=== PATIENT | male | born 1935 | race Caucasian/White ===

== ENCOUNTER 2020-12-25 10:50 | Emergency (ER) | payer OTHER, MEDICARE ==
--- NOTE | 2020-12-25 11:31 | ED ---
Extremity Problem HPI - General Chief complaint: Extremity Problem,Nontraumatic Stated complaint: R Knee pain/sent by PCP Time Seen by Provider: 12/25/20 11:14 Source: patient Mode of arrival: ambulatory Limitations: no limitations - History of Present Illness Initial comments: 85-year-old male presents to emergency department with a chief complaint of right leg pain. States his been ongoing for approximately 2 weeks now and appears to be exacerbated with ambulation and weightbearing. States most of the pain is located in the right calf and he has developed unilateral leg swelling but denies any injuries. States he went to his primary care physician who advised him to come to the emergency department for an ultrasound to rule out a DVT. He denies any chest pain or shortness of breath. He is not anticoagulated at this time. No history of DVT or PE. - Related Data Allergies Allergy/AdvReac Type Severity Reaction Status Date / Time tramadol [From Ultram] Allergy Rash/Hives Verified 12/25/20 10:57 Review of Systems ROS Statement: Those systems with pertinent positive or pertinent negative responses have been documented in the HPI. ROS Other: All systems not noted in ROS Statement are negative. Past Medical History Past Medical History: GERD/Reflux, Hypertension Additional Past Medical History / Comment(s): Gout, History of Any Multi-Drug Resistant Organisms: None Reported Past Surgical History: Appendectomy, Cholecystectomy, Tonsillectomy Additional Past Surgical History / Comment(s): Neck fusion Past Psychological History: No Psychological Hx Reported Smoking Status: Never smoker Past Alcohol Use History: None Reported Past Drug Use History: None Reported General Exam Limitations: no limitations General appearance: alert, in no apparent distress, obese Head exam: Present: atraumatic, normocephalic, normal inspection Eye exam: Present: normal appearance, PERRL, EOMI Pupils: Present: normal accommodation ENT exam: Present: normal exam, normal oropharynx, mucous membranes moist Neck exam: Present: normal inspection, full ROM. Absent: tenderness Respiratory exam: Present: normal lung sounds bilaterally. Absent: respiratory distress, wheezes, rales, rhonchi, stridor, chest wall tenderness, accessory muscle use Cardiovascular Exam: Present: regular rate, normal rhythm, normal heart sounds. Absent: systolic murmur Extremities exam: Present: normal inspection, full ROM, normal capillary refill, pedal edema (+2 pitting edema bilaterally.), calf tenderness (Right calf tenderness), other (Palpable DP and PT bilaterally.). Absent: tenderness, joint swelling Back exam: Present: normal inspection, full ROM. Absent: tenderness, CVA tenderness (R), CVA tenderness (L) Neurological exam: Present: alert, oriented X3 Psychiatric exam: Present: normal affect, normal mood Skin exam: Present: warm, dry, intact, normal color Course Vital Signs 12/25/20 10:51 Temperature 97.5 F L Pulse Rate 63 Respiratory 20 Rate Blood Pressure 170/64 O2 Sat by Pulse 99 Oximetry Medical Decision Making - Medical Decision Making 85-year-old male presents to emergency department with a chief complaint of right leg pain. Physical examination reveals +2 pitting edema bilaterally, however there is more swelling on the right lower extremity. Ultrasound of the right lower extremity reveals no signs of DVT. However, there is a small fluid collection possibly hematoma. Patient will be discharged with outpatient follow-up. No chest pain or shortness of breath. Return parameters discussed the patient was understanding and agreeable. Case discussed with Dr. Esposito. Disposition Clinical Impression: Right leg swelling Disposition: HOME SELF-CARE Condition: Stable Instructions (If sedation given, give patient instructions): Leg Edema (ED) Additional Instructions: Please return to the Emergency Department if symptoms worsen or any other concerns. Is patient prescribed a controlled substance at d/c from ED?: No Referrals: [facility],Clinic [Primary Care Provider] - 1-2 days Time of Disposition: 12:48
--- NOTE | 2020-12-25 12:43 | US ---
EXAMINATION TYPE: US venous doppler duplex LE RT DATE OF EXAM: 12/25/2020 12:06 PM COMPARISON: NONE CLINICAL HISTORY: right calf pain x 2 weeks. Right anterior knee pain per patient with right calf swe lling x 2 weeks SIDE PERFORMED: Right TECHNIQUE: The lower extremity deep venous system is examined utilizing real time linear array sonog barry with graded compression, doppler sonography and color-flow sonography. VESSELS IMAGED: Common Femoral Vein Deep Femoral Vein Greater Saphenous Vein * Femoral Vein Popliteal Vein Small Saphenous Vein * Proximal Calf Veins (* superficial vessels) Right Leg: Negative for DVT. There is a Complex fluid area seen anterolateral to right knee = 5.8 x 3.3 x 0.8cm. IMPRESSION: 1. Right lower extremity ultrasound negative for deep venous thrombosis. 2. Small irregular fluid collection is present anterior laterally at the location of the patient's lo wer extremity pain. Consider small hematoma.
[2020-12-25 13:21] VITALS: BP 137/70; PULSE 82; RESP 18; TEMP 98.5
== END 2020-12-25 13:37 | disposition home or self-care (01) ==
LOC: EC 10:50
DX: M79.89 Other specified soft tissue disorders (principal); M79.661 Pain in right lower leg; M25.561 Pain in right knee; I10 Essential (primary) hypertension; K21.9 Gastro-esophageal reflux disease without esophagitis
CPT/HCPCS: 99284

== ENCOUNTER 2021-03-20 12:12 | Inpatient (IN) | payer OTHER, MEDICARE ==
--- NOTE | 2021-03-20 13:08 | ED ---
General Adult HPI - General Chief complaint: Recheck/Abnormal Lab/Rx Stated complaint: High Blood Pressure Time Seen by Provider: 03/20/21 12:54 Source: patient Mode of arrival: ambulatory Limitations: no limitations - History of Present Illness Initial comments: Dictation was produced using [employer] dictation software. please excuse any grammatical, word or spelling errors. Chief Complaint: 85-year-old male presents with hypertension History of Present Illness: 85-year-old male presents to the emergency department for hypertension. Patient states he's been checking his blood pressures at home. He presents to the emergency Department with his daughter. Patient allegedly has been having systolic blood pressures 2170 and 200. Last week patient had his blood pressure medications changed. He was taken off his nifedipine due to lower extremity swelling. He was changed to lisinopril. He's been monitoring his blood pressures at home which have been progressively increasing. He has 40 year history of hypertension and has been under several blood pressure medications. Denies any chest pain. No shortness of breath. No numbness or paresthesias to the arms or legs. Patient denies any headache. States that he feels slightly weak. The ROS documented in this emergency department record has been reviewed and confirmed by me. Those systems with pertinent positive or negative responses have been documented in the HPI. All other systems are other negative and/or noncontributory. PHYSICAL EXAM: General Impression: Alert and oriented x3, not in acute distress HEENT: Normocephalic atraumatic, extra-ocular movements intact, pupils equal and reactive to light bilaterally, mucous membranes moist. Cardiovascular: Heart regular rate and rhythm Chest: Able to complete full sentences, no retractions, no tachypnea Abdomen: abdomen soft, non-tender, non-distended, no organomegaly Musculoskeletal: Pulses present and equal in all extremities, no peripheral edema Motor: no focal deficits noted Neurological: CN II-XII grossly intact, no focal motor or sensory deficits noted Skin: Intact with no visualized rashes Psych: Normal affect and mood ED course: 85-year-old well-appearing male presents to the emergency department for hypertension. Vital signs upon arrival shows blood pressure 193/85, heart rate of 50, rest of vital signs within acceptable limits. As I'm evaluating the patient at the bedside his heart rate will decrease into the low 40s. Daughter bedside reports that patient does not have a history of bradycardia. She reports that he's not on any medications to lower his heart rate. EKG shows sinus bradycardia. No heart block. Laboratory evaluation obtained. CBC is unremarkable. Coag panel is negative. Metabolic panel shows 5.5 potassium however with hemolysis. This likely in lab error. Elevated BUN of 24 and creatinine 1.15, troponin is 0.129. Chest x-ray shows no acute processes. Blood pressure still slightly elevated 180/64. His reevaluated at bedside at approximately 2:30 PM found to be stable medical condition. He is well-appearing at the bedside. Is concerned that patient has bradycardia secondary to cardiac ischemia. Patient started on heparin for non- ST segment elevation DE. Patient will be admitted. Case discussed with Dr. Oliveros. Cardiology be consulted. EKG interpretation: Ventricular rate rate, sinus bradycardia, when necessary 172, QRS 120, QTC 405. No MO prolongation, no QTC prolongation, T-wave inversion in inferior leads and V6. No old EKG for comparison. Overall this EKG is nonspecific - Related Data Allergies Allergy/AdvReac Type Severity Reaction Status Date / Time tramadol [From Ultram] Allergy Rash/Hives Verified 03/20/21 12:38 Review of Systems ROS Statement: Those systems with pertinent positive or pertinent negative responses have been documented in the HPI. ROS Other: All systems not noted in ROS Statement are negative. Past Medical History Past Medical History: GERD/Reflux, Hypertension Additional Past Medical History / Comment(s): Gout, History of Any Multi-Drug Resistant Organisms: None Reported Past Surgical History: Appendectomy, Cholecystectomy, Tonsillectomy Additional Past Surgical History / Comment(s): Neck fusion Past Psychological History: No Psychological Hx Reported Smoking Status: Never smoker Past Alcohol Use History: None Reported Past Drug Use History: None Reported General Exam Limitations: no limitations Course Vital Signs 03/20/21 03/20/21 03/20/21 12:35 13:04 13:54 Temperature 97.9 F Pulse Rate 50 L 49 L 42 L Respiratory 16 20 20 Rate Blood Pressure 193/85 196/92 192/88 O2 Sat by Pulse 96 95 95 Oximetry 03/20/21 15:08 Temperature Pulse Rate 43 L Respiratory 20 Rate Blood Pressure 188/64 O2 Sat by Pulse 95 Oximetry Medical Decision Making - Lab Data Result diagrams: 03/20/21 13:08 09/03/21 13:08 Lab Results 03/20/21 03/20/21 03/20/21 Range/Units 13:08 13:08 13:08 WBC 8.4 (3.8-10.6) k/uL RBC 4.41 (4.30-5.90) m/uL Hgb 14.4 (13.0-17.5) gm/dL Hct 41.4 (39.0-53.0) % MCV 93.8 (80.0-100.0) fL MCH 32.5 (25.0-35.0) pg MCHC 34.7 (31.0-37.0) g/dL RDW 13.4 (11.5-15.5) % Plt Count 203 (150-450) k/uL MPV 7.9 Neutrophils % 61 % Lymphocytes % 29 % Monocytes % 6 % Eosinophils % 2 % Basophils % 1 % Neutrophils # 5.1 (1.3-7.7) k/uL Lymphocytes # 2.4 (1.0-4.8) k/uL Monocytes # 0.5 (0-1.0) k/uL Eosinophils # 0.2 (0-0.7) k/uL Basophils # 0.1 (0-0.2) k/uL PT 10.0 (9.0-12.0) sec INR 0.9 (<1.2) APTT 22.5 (22.0-30.0) sec Sodium 140 (137-145) mmol/L Potassium 5.5 H (3.5-5.1) mmol/L Chloride 112 H (98-107) mmol/L Carbon Dioxide 20 L (22-30) mmol/L Anion Gap 8 mmol/L BUN 24 H (9-20) mg/dL Creatinine 1.15 (0.66-1.25) mg/dL Est GFR (CKD-EPI)AfAm 68 (>60 ml/min/1.73 sqM) Est GFR (CKD-EPI)NonAf 59 (>60 ml/min/1.73 sqM) Glucose 104 H (74-99) mg/dL Calcium 9.1 (8.4-10.2) mg/dL Magnesium 1.6 (1.6-2.3) mg/dL Total Bilirubin 1.1 (0.2-1.3) mg/dL AST 52 (17-59) U/L ALT 27 (4-49) U/L Alkaline Phosphatase 47 (38-126) U/L Troponin I (0.000-0.034) ng/mL Total Protein 6.4 (6.3-8.2) g/dL Albumin 4.1 (3.5-5.0) g/dL 03/20/21 Range/Units 13:08 WBC (3.8-10.6) k/uL RBC (4.30-5.90) m/uL Hgb (13.0-17.5) gm/dL Hct (39.0-53.0) % MCV (80.0-100.0) fL MCH (25.0-35.0) pg MCHC (31.0-37.0) g/dL RDW (11.5-15.5) % Plt Count (150-450) k/uL MPV Neutrophils % % Lymphocytes % % Monocytes % % Eosinophils % % Basophils % % Neutrophils # (1.3-7.7) k/uL Lymphocytes # (1.0-4.8) k/uL Monocytes # (0-1.0) k/uL Eosinophils # (0-0.7) k/uL Basophils # (0-0.2) k/uL PT (9.0-12.0) sec INR (<1.2) APTT (22.0-30.0) sec Sodium (137-145) mmol/L Potassium (3.5-5.1) mmol/L Chloride (98-107) mmol/L Carbon Dioxide (22-30) mmol/L Anion Gap mmol/L BUN (9-20) mg/dL Creatinine (0.66-1.25) mg/dL Est GFR (CKD-EPI)AfAm (>60 ml/min/1.73 sqM) Est GFR (CKD-EPI)NonAf (>60 ml/min/1.73 sqM) Glucose (74-99) mg/dL Calcium (8.4-10.2) mg/dL Magnesium (1.6-2.3) mg/dL Total Bilirubin (0.2-1.3) mg/dL AST (17-59) U/L ALT (4-49) U/L Alkaline Phosphatase (38-126) U/L Troponin I 0.129 H* (0.000-0.034) ng/mL Total Protein (6.3-8.2) g/dL Albumin (3.5-5.0) g/dL Critical Care Time Critical Care Time: Yes Total Critical Care Time: 33 Disposition Clinical Impression: Bradycardia Disposition: ADMITTED IP TO THIS HOSP Condition: Fair Referrals: [facility],Clinic [Primary Care Provider] - 1-2 days
[2021-03-20 13:25] LABS: Basophils # (A) 0.1 k/uL (0-0.2); Basophils % (A) 1 %; Eosinophils # (A) 0.2 k/uL (0-0.7); Eosinophils % (A) 2 %; HCT 41.4 % (39.0-53.0); HGB 14.4 gm/dL (13.0-17.5); Lymphocytes # (A) 2.4 k/uL (1.0-4.8); Lymphocytes % (A) 29 %; MCH 32.5 pg (25.0-35.0); MCHC 34.7 g/dL (31.0-37.0); MCV 93.8 fL (80.0-100.0); Mean Platelet Volume 7.9; Monocytes # (A) 0.5 k/uL (0-1.0); Monocytes % (A) 6 %; Neutrophils # (A) 5.1 k/uL (1.3-7.7); Neutrophils % (A) 61 %; Platelet Count 203 k/uL (150-450); RBC 4.41 m/uL (4.30-5.90); RDW 13.4 % (11.5-15.5); WBC 8.4 k/uL (3.8-10.6)
[2021-03-20 13:36] LABS: INR 0.9 (<1.2); Partial Thromboplastin Time 22.5 sec (22.0-30.0)
--- NOTE | 2021-03-20 13:44 | XR ---
EXAMINATION TYPE: XR chest 1V portable DATE OF EXAM: 03/20/2021 HISTORY: Shortness of breath. COMPARISON: None. TECHNIQUE: Single view of the chest is submitted. FINDINGS: Demonstrated are scattered senescent parenchymal change. There is no evidence for focal infiltrate. The heart is stable. Hilar and mediastinal structures are within normal limits. Degenerative changes are seen of the dorsal spine. IMPRESSION: 1. Chronic changes without evidence for acute pulmonary disease.
[2021-03-20 13:49] LABS: Albumin 4.1 g/dL (3.5-5.0); Calcium 9.1 mg/dL (8.4-10.2); Magnesium 1.6 mg/dL (1.6-2.3); Total Bilirubin 1.1 mg/dL (0.2-1.3); Total Protein 6.4 g/dL (6.3-8.2)
[2021-03-20 14:23] LABS: Potassium 5.5 mmol/L (3.5-5.1)
[2021-03-20] MEDS ORDERED: HEPARIN SODIUM 1,000 UN/ML (10ML VL) IV PRN (14:41)
[2021-03-20] MEDS ORDERED: HEPARIN SODIUM 1,000 UN/ML (10ML VL) IV ONE (14:41)
[2021-03-20] MEDS ORDERED: ASPIRIN 81 MG PO STA (14:41)
[2021-03-20] MEDS ORDERED: NALOXONE 0.4 MG/ML 1 ML VIAL IV PRN (14:46)
[2021-03-20] MEDS: HEPARIN SOD,PORK IN 0.45% NACL 25,000 UNIT in 0.45% NACL 1 250ML.BAG IV SCH (15:16)
[2021-03-20] MEDS: SODIUM CHLORIDE 0.9% 1,000 ML IV SCH (15:18)
[2021-03-20] MEDS: PANTOPRAZOLE 40 MG/10 ML VIAL IV SCH (15:22)
[2021-03-20] MEDS ORDERED: CYCLOBENZAPRINE 10 MG TAB PO PRN (18:43)
[2021-03-20] MEDS ORDERED: COLCHICINE 0.6 MG EACH PO PRN (18:43)
--- NOTE | 2021-03-20 18:48 | P.HPIM ---
History of Present Illness H&P Date: 03/20/21 Chief Complaint: Uncontrolled hypertension 85-year-old male patient with history of hypertension, presents to ED with complaint of high blood pressure; patient reports that his systolic blood pressure has been running between 200-270; patient reports medication changed by PCP last week when he was taken off nifedipine due to lower extremity swelling and was started on lisinopril; patient reports progressive worsening in blood pressure since that; patient denies any chest shortness of breath Workup in ED including an EKG revealed sinus bradycardia without any heart blo ck; vital signs included a heart rate of 50 and occasionally dipping down to 40s in ED; lab review reveals CBC unremarkable, potassium 5.5; creatinine 1.15 with BUN of 24, troponin 0.129; blood pressure was found to be elevated at 180/64 Patient is placed on IV heparin infusion and is admitted to the hospital for further evaluation of non-ST elevation OH and bradycardia Review of Systems REVIEW OF SYSTEMS: CONSTITUTIONAL: No fever, no malaise, no fatigue. HEENT: No recent visual problems or hearing problems. Denied any sore throat. CARDIOVASCULAR: No chest pain, orthopnea, PND, no palpitations, no syncope. PULMONARY: No shortness of breath, no cough, no hemoptysis. GASTROINTESTINAL: No diarrhea, no nausea, no vomiting, no abdominal pain. NEUROLOGICAL: No headaches, no weakness, no numbness. HEMATOLOGICAL: Denies any bleeding or petechiae. GENITOURINARY: Denies any burning micturition, frequency, or urgency. MUSCULOSKELETAL/RHEUMATOLOGICAL: Denies any joint pain, swelling, or any muscle pain. ENDOCRINE: Denies any polyuria or polydipsia. The rest of the 14-point review of systems is negative. Past Medical History Past Medical History: GERD/Reflux, Hypertension Additional Past Medical History / Comment(s): Gout, History of Any Multi-Drug Resistant Organisms: None Reported Past Surgical History: Appendectomy, Cholecystectomy, Tonsillectomy Additional Past Surgical History / Comment(s): Neck fusion Past Psychological History: No Psychological Hx Reported Smoking Status: Never smoker Past Alcohol Use History: None Reported Past Drug Use History: None Reported Medications and Allergies Home Medications Medication Instructions Recorded Confirmed Type Ascorbic Acid [Vitamin C] 500 mg PO DAILY 03/20/21 03/20/21 History Aspirin EC [Ecotrin Low Dose] 81 mg PO DAILY 03/20/21 03/20/21 History Atorvastatin [Lipitor] 80 mg PO HS 03/20/21 03/20/21 History Carbamide Peroxide [Debrox Otic] 5 - 10 drops LEFT EAR BID 03/20/21 03/20/21 History Colchicine 0.6 mg PO DAILY PRN 03/20/21 03/20/21 History Cyclobenzaprine [Flexeril] 10 mg PO BID PRN 03/20/21 03/20/21 History Docusate [Colace] 100 mg PO DAILY 03/20/21 03/20/21 History Febuxostat 40 mg PO DAILY 03/20/21 03/20/21 History Gabapentin 600 mg PO TID 03/20/21 03/20/21 History Glucosamine Tab 1 tab PO DAILY 03/20/21 03/20/21 History Lidocaine 5% Patch [Lidoderm] 1 patch TOPICAL Q12H 03/20/21 03/20/21 History Lisinopril-Hctz 20-12.5 mg 1 tab PO DAILY 03/20/21 03/20/21 History [Zestoretic 20-12.5] Multivitamins, Thera [Multivitamin 1 tab PO DAILY 03/20/21 03/20/21 History (formulary)] Hamlin-3 Fatty Acids [Hamlin-3] 1,000 mg PO DAILY 03/20/21 03/20/21 History Pantoprazole [Protonix] 40 mg PO BID 03/20/21 03/20/21 History Allergies Allergy/AdvReac Type Severity Reaction Status Date / Time tramadol [From Ultram] Allergy Rash/Hives Verified 03/20/21 17:53 Physical Exam Vitals: Vital Signs Temp Pulse Resp BP Pulse Ox 03/20/21 13:54 42 L 20 192/88 95 03/20/21 13:04 49 L 20 196/92 95 03/20/21 12:35 97.9 F 50 L 16 193/85 96 Intake and Output 03/19/21 03/20/21 03/20/21 22:59 06:59 14:59 Other: Weight 100.698 kg - Constitutional General appearance: Present: average body habitus, cooperative, no acute distress - EENT Eyes: Present: anicteric sclerae, EOMI, PERRLA, normal appearance ENT: Present: hearing grossly normal, normal oropharynx Ears: bilateral: normal - Neck Neck: Present: normal ROM. Absent: lymphadenopathy, rigidity, thyromegaly Carotids: negative: bruit present Thyroid: bilateral: normal size, negative: enlarged, nodule - Respiratory Respiratory: bilateral: CTA, negative: rales, rhonchi, wheezing - Cardiovascular Rhythm: regular Heart sounds: normal: S1, S2 Abnormal Heart Sounds: Absent: systolic murmur, diastolic murmur - Gastrointestinal General gastrointestinal: Present: normal bowel sounds, soft. Absent: distended, organomegaly, tenderness - Genitourinary Genitourinary Comment(s): deferred - Integumentary Integumentary: Present: normal turgor. Absent: jaundiced, rash, ulcer - Neurologic Neurologic: Present: CNII-XII intact. Absent: focal deficits - Musculoskeletal Musculoskeletal: Present: gait normal, strength equal bilaterally - Psychiatric Psychiatric: Present: A&O x's 3, appropriate affect, intact judgment & insight Results CBC & Chem 7: 03/20/21 13:08 03/20/21 13:08 Labs: Abnormal Lab Results - Last 24 Hours (Table) 03/20/21 03/20/21 Range/Units 13:08 13:08 Potassium 5.5 H (3.5-5.1) mmol/L Chloride 112 H (98-107) mmol/L Carbon Dioxide 20 L (22-30) mmol/L BUN 24 H (9-20) mg/dL Glucose 104 H (74-99) mg/dL Troponin I 0.129 H* (0.000-0.034) ng/mL Assessment and Plan Assessment: 1. Non-ST elevation [place]; we will monitor EKG and trend troponin; continue with home dose of aspirin 81 daily milligrams daily, heparin IV per protocol; recommend 2-D echo; consult cardiology 2. Uncontrolled hypertension; patient takes lisinopril 2012 0.5 mg daily 3. Hyperlipidemia; Lipitor 80 mg by mouth daily at bedtime 4. Hyperuricemia/gout; continue with home dose ofFebuxostat 40 mg daily, hold Gissane 0.6 mg daily 5. Neuropathy; Neurontin 300 mg by mouth 3 times a day DVT prophylaxis; SCDs/IV heparin CODE STATUS; full code
[2021-03-20] MEDS: ATORVASTATIN 80 MG TAB PO SCH (21:39)
[2021-03-20] MEDS: GABAPENTIN 300 MG CAP PO SCH (21:39)
[2021-03-20] MEDS ORDERED: hydrALAZINE HCL 25 MG TAB PO STA (22:17)
[2021-03-21] MEDS ORDERED: hydrALAZINE HCL 20 MG/ML 1 ML VIAL IVP STA ×2 (00:14→01:34)
[2021-03-21] MEDS ORDERED: amLODIPine 5 MG TAB PO STA (00:14)
[2021-03-21 03:54] LABS: Calcium 9.5 mg/dL (8.4-10.2); Magnesium 1.5 mg/dL (1.6-2.3); Potassium 3.5 mmol/L (3.5-5.1)
[2021-03-21] MEDS ORDERED: Magnesium Replacement Protocol 1 EACH MISC MISCELLANE PRN (05:25)
[2021-03-21] MEDS ORDERED: Potassium Replacement Protocol 1 EACH MISC MISCELLANE PRN (05:34)
[2021-03-21] MEDS: SODIUM CHLORIDE 0.9% 1,000 ML IV SCH ×2 (05:54→14:47)
[2021-03-21] MEDS: MAGNESIUM SULFATE-D5W PMX 1 GM in DEXTROSE/WATER 1 100ML.BAG IVPB SCH ×2 (06:07→08:10)
[2021-03-21] MEDS: POTASSIUM CHLORIDE ER 20 MEQ TAB.ER PO SCH ×2 (06:07→07:03)
--- NOTE | 2021-03-21 07:48 | P.CRDCN ---
History of Present Illness Consult date: 03/21/21 Chief complaint: Uncontrolled blood pressure History of present illness: This is a very pleasant 85-year-old gentleman with a past medical history significant for hypertension and dyslipidemia presented to the emergency department complaining of his pressure has not been under good control. He has been struggling in getting the pressure under control for the last few weeks and he was seen by his primary care physician recently were some adjustment on the medication done with unknown details at this point but his readings for the last 24 hours where elevated with a systolic pressure more than 200 mmHg and diastolic pressure more than 100 mmHg clinically he is feeling well. He denies any symptoms of chest pain or chest discomfort or shortness of breath and denies any dizziness or lightheadedness or any feeling of heart racing or fluttering or presyncope or syncope. He was admitted to the hospital for further evaluation. The chest x-ray did not show any acute abnormalities. The EKG showed sinus rhythm with T-wave inversion inferiorly. As a mentioned the patient did not have any symptoms of chest pain or chest discomfort. Troponin came in to be slightly elevated but it does not seems to be consistent with acute coronary sy ndrome. Currently he is on lisinopril/hydrochlorothiazide for blood pressure and also he is on hydralazine IV when necessary. Past Medical History Past Medical History: GERD/Reflux, Hypertension Additional Past Medical History / Comment(s): Gout, History of Any Multi-Drug Resistant Organisms: None Reported Past Surgical History: Appendectomy, Cholecystectomy, Tonsillectomy Additional Past Surgical History / Comment(s): Neck fusion Past Psychological History: No Psychological Hx Reported Smoking Status: Never smoker Past Alcohol Use History: None Reported Past Drug Use History: None Reported Medications and Allergies Home Medications Medication Instructions Recorded Confirmed Type Ascorbic Acid [Vitamin C] 500 mg PO DAILY 03/20/21 03/20/21 History Aspirin EC [Ecotrin Low Dose] 81 mg PO DAILY 03/20/21 03/20/21 History Atorvastatin [Lipitor] 80 mg PO HS 03/20/21 03/20/21 History Carbamide Peroxide [Debrox Otic] 5 - 10 drops LEFT EAR BID 03/20/21 03/20/21 History Colchicine 0.6 mg PO DAILY PRN 03/20/21 03/20/21 History Cyclobenzaprine [Flexeril] 10 mg PO BID PRN 03/20/21 03/20/21 History Docusate [Colace] 100 mg PO DAILY 03/20/21 03/20/21 History Febuxostat 40 mg PO DAILY 03/20/21 03/20/21 History Gabapentin 600 mg PO TID 03/20/21 03/20/21 History Glucosamine Tab 1 tab PO DAILY 03/20/21 03/20/21 History Lidocaine 5% Patch [Lidoderm] 1 patch TOPICAL Q12H 03/20/21 03/20/21 History Lisinopril-Hctz 20-12.5 mg 1 tab PO DAILY 03/20/21 03/20/21 History [Zestoretic 20-12.5] Multivitamins, Thera [Multivitamin 1 tab PO DAILY 03/20/21 03/20/21 History (formulary)] Hobart-3 Fatty Acids [Hobart-3] 1,000 mg PO DAILY 03/20/21 03/20/21 History Pantoprazole [Protonix] 40 mg PO BID 03/20/21 03/20/21 History Allergies Allergy/AdvReac Type Severity Reaction Status Date / Time tramadol [From [facility]] Allergy Rash/Hives Verified 03/20/21 17:53 Physical Exam Vitals: Vital Signs Temp Pulse Pulse Resp BP BP BP 03/21/21 03:30 03/21/21 03:00 98 F 68 18 03/21/21 01:20 03/20/21 23:30 98.2 F 48 L 19 03/20/21 21:15 221/96 213/91 03/20/21 21:14 97.7 F 46 L 18 03/20/21 20:20 98.0 F 46 L 20 195/94 03/20/21 17:49 61 20 196/90 03/20/21 15:08 43 L 20 188/64 03/20/21 13:54 42 L 20 192/88 03/20/21 13:04 49 L 20 196/92 03/20/21 12:35 97.9 F 50 L 16 193/85 BP BP BP Pulse Ox 03/21/21 03:30 162/78 154/69 03/21/21 03:00 197/88 163/74 95 03/21/21 01:20 205/89 181/84 03/20/21 23:30 214/98 195/86 97 03/20/21 21:15 218/109 03/20/21 21:14 212/94 98 03/20/21 20:20 95 03/20/21 17:49 96 03/20/21 15:08 95 03/20/21 13:54 95 03/20/21 13:04 95 03/20/21 12:35 96 Intake and Output 03/20/21 03/21/21 03/21/21 22:59 06:59 14:59 Intake Total 64.994 91.357 Output Total 215 Balance 64.994 -123.643 Intake: Intake, IV Titration 64.994 91.357 Amount Heparin Sod,Pork in 0.45% 64.994 91.357 NaCl 25,000 unit In 0.45 % NaCl 1 250ml.bag @ 9.93 UNITS/KG/HR 9.999 mls/hr IV .Q24H [facility] Rx#: [id number] Output: Urine 215 Other: Voiding Method Urinal Urinal Weight 100.698 kg 99.7 kg - Constitutional General appearance: no acute distress - Respiratory Respiratory: bilateral: CTA - Cardiovascular Rhythm: regular Heart sounds: normal: S1, S2 Abnormal Heart Sounds: systolic murmur Results 03/20/21 13:08 03/21/21 03:20 Cardiac Enzymes 03/20/21 03/20/21 03/20/21 Range/Units 13:08 13:08 21:16 AST 52 (17-59) U/L Troponin I 0.129 H* 0.103 H* (0.000-0.034) ng/mL 03/21/21 Range/Units 03:20 AST (17-59) U/L Troponin I 0.091 H* (0.000-0.034) ng/mL Coagulation 03/20/21 03/20/21 03/21/21 Range/Units 13:08 21:16 03:20 PT 10.0 (9.0-12.0) sec APTT 22.5 32.1 H 69.4 H (22.0-30.0) sec CBC 03/20/21 Range/Units 13:08 WBC 8.4 (3.8-10.6) k/uL RBC 4.41 (4.30-5.90) m/uL Hgb 14.4 (13.0-17.5) gm/dL Hct 41.4 (39.0-53.0) % Plt Count 203 (150-450) k/uL Comprehensive Metabolic Panel 03/20/21 03/21/21 Range/Units 13:08 03:20 Sodium 140 140 (137-145) mmol/L Potassium 5.5 H 3.5 (3.5-5.1) mmol/L Chloride 112 H 109 H (98-107) mmol/L Carbon Dioxide 20 L 24 (22-30) mmol/L BUN 24 H 22 H (9-20) mg/dL Creatinine 1.15 1.11 (0.66-1.25) mg/dL Glucose 104 H 111 H (74-99) mg/dL Calcium 9.1 9.5 (8.4-10.2) mg/dL AST 52 (17-59) U/L ALT 27 (4-49) U/L Alkaline Phosphatase 47 (38-126) U/L Total Protein 6.4 (6.3-8.2) g/dL Albumin 4.1 (3.5-5.0) g/dL Current Medications Generic Name Dose Route Start Last Admin Trade Name Freq PRN Reason Stop Dose Admin Allopurinol 200 mg 03/21/21 09:00 Allopurinol 100 Mg Tab PO DAILY [facility] Ascorbic Acid 500 mg 03/21/21 09:00 Ascorbic Acid 500 Mg Tab PO DAILY [facility] Aspirin 81 mg 03/21/21 09:00 Aspirin 81 Mg PO DAILY [facility] Atorvastatin Calcium 80 mg 03/20/21 21:00 03/20/21 21:39 Atorvastatin 80 Mg Tab PO 80 mg HS [facility] Administration Colchicine 0.6 mg 03/20/21 18:43 Colchicine 0.6 Mg Each PO DAILY PRN GOUT Cyclobenzaprine HCl 10 mg 03/20/21 18:43 Cyclobenzaprine 10 Mg Tab PO BID PRN Muscle Spasm Docusate Sodium 100 mg 03/21/21 09:00 Docusate 100 Mg Cap PO DAILY [facility] Gabapentin 600 mg 03/20/21 22:00 03/20/21 21:39 Gabapentin 300 Mg Cap PO 600 mg TID [facility] Administration Lisinopril/HCTZ 1 each 03/21/21 09:00 Lisinopril-Hctz 20-12.5 Mg 1 Each Tab PO DAILY [facility] Heparin Sodium (Porcine) 0 unit 03/20/21 14:41 03/20/21 21:49 Heparin Sodium 1,000 Un/Ml (10ml Vl) IV 4,000 unit PER PROTOCOL PRN Administration Low PTT Protocol Heparin Sodium/Sodium Chloride 250 mls @ 9.999 mls/hr 03/20/21 14:45 03/21/21 04:47 25,000 unit/ Sodium Chloride IV 10.93 units/kg/hr .Q24H [facility] 11.006 mls/hr Titration Protocol 9.93 UNITS/KG/HR Sodium Chloride 1,000 mls @ 75 mls/hr 03/20/21 15:15 03/21/21 05:54 Saline 0.9% IV Not Given .[id number] [facility] Miscellaneous Information 1 each 03/21/21 05:25 Magnesium Replacement Protocol 1 Each Misc MISCELLANE DAILY PRN Per Protocol Protocol Miscellaneous Information 1 each 03/21/21 05:34 Potassium Replacement Protocol 1 Each Misc MISCELLANE DAILY PRN Per Protocol Protocol Naloxone HCl 0.2 mg 03/20/21 14:46 Naloxone 0.4 Mg/Ml 1 Ml Vial IV Q2M PRN Opioid Reversal Pantoprazole Sodium 40 mg 03/20/21 15:15 03/20/21 15:22 Pantoprazole 40 Mg/10 Ml Vial IV 40 mg DAILY [facility] Administration Spironolactone 25 mg 03/21/21 09:00 Spironolactone 25 Mg Tab PO DAILY [facility] Intake and Output 03/20/21 03/21/21 03/21/21 22:59 06:59 14:59 Intake Total 64.994 91.357 Output Total 215 Balance 64.994 -123.643 Intake: Intake, IV Titration 64.994 91.357 Amount Heparin Sod,Pork in 0.45% 64.994 91.357 NaCl 25,000 unit In 0.45 % NaCl 1 250ml.bag @ 9.93 UNITS/KG/HR 9.999 mls/hr IV .Q24H [facility] Rx#: [id number] Output: Urine 215 Other: Voiding Method Urinal Urinal Weight 100.698 kg 99.7 kg 03/20/21 13:08 03/21/21 03:20 Assessment and Plan Assessment: Assessment #1 hypertension urgency #2 dyslipidemia #3 evidence of myocardial injury Plan #1 continue the current dose of lisinopril/Hydrocort Dyazide #2 add Aldactone to the current medical regimen #3 consider ruling out secondary causes of hypertension if the pressure will be difficult to control #4 obtain an echocardiogram was Doppler #5 consider medical treatment for the mildly abnormal troponin in the absence of chest pain or chest discomfort. #6 follow-up with the patient
[2021-03-21] MEDS: PANTOPRAZOLE 40 MG/10 ML VIAL IV SCH (08:11)
[2021-03-21] MEDS: SPIRONOLACTONE 25 MG TAB PO SCH (08:11)
[2021-03-21] MEDS: GABAPENTIN 300 MG CAP PO SCH ×3 (08:11→21:32)
[2021-03-21] MEDS: ASPIRIN 81 MG PO SCH (08:11)
[2021-03-21] MEDS: allopurinoL 100 MG TAB PO SCH (08:11)
[2021-03-21] MEDS: DOCUSATE 100 MG CAP PO SCH (08:11)
[2021-03-21] MEDS: ASCORBIC ACID 500 MG TAB PO SCH (08:11)
[2021-03-21] MEDS ORDERED: LISINOPRIL-HCTZ 20-12.5 MG 1 EACH TAB PO SCH (09:00)
[2021-03-21] MEDS: hydrALAZINE HCL 20 MG/ML 1 ML VIAL IVP PRN ×2 (13:48→17:52)
[2021-03-21] MEDS: HEPARIN SOD,PORK IN 0.45% NACL 25,000 UNIT in 0.45% NACL 1 250ML.BAG IV SCH (14:47)
[2021-03-21] MEDS ORDERED: ENALAPRILAT 1.25 MG/ML 1 ML VIAL IVP STA (15:58)
--- NOTE | 2021-03-21 17:27 | P.PN ---
Subjective Progress Note Date: 03/21/21 Principal diagnosis: Elevated troponin Uncontrolled hypertension 85-year-old male patient with history of hypertension, presents to ED with complaint of high blood pressure; patient reports that his systolic blood pressure has been running between 200-270; patient reports medication changed by PCP last week when he was taken off nifedipine due to lower extremity swelling and was started on lisinopril; patient reports progressive worsening in blood pr essure since that; patient denies any chest shortness of breath Workup in ED including an EKG revealed sinus bradycardia without any heart block; vital signs included a heart rate of 50 and occasionally dipping down to 40s in ED; lab review reveals CBC unremarkable, potassium 5.5; creatinine 1.15 w ith BUN of 24, troponin 0.129; blood pressure was found to be elevated at 180/64 Patient is placed on IV heparin infusion and is admitted to the hospital for further evaluation of non-ST elevation MS and bradycardia Objective - Vital Signs Vital signs: Vital Signs Temp 97.8 F 03/21/21 13:14 Pulse 77 03/21/21 13:14 Resp 16 03/21/21 13:14 BP 183/81 03/21/21 13:14 Pulse Ox 97 03/21/21 13:14 Intake & Output 03/20/21 03/21/21 03/21/21 18:59 06:59 18:59 Intake Total 156.351 180 Output Total 215 1300 Balance -58.649 -1120 Weight 100.698 kg 99.7 kg Intake: Intake, IV Titration 156.351 Amount Heparin Sod,Pork in 0.45% 156.351 NaCl 25,000 unit In 0.45 % NaCl 1 250ml.bag @ 9.93 UNITS/KG/HR 9.999 mls/hr IV .Q24H [facility] Rx#: [id number] Oral 180 Output: Urine 215 1300 Other: Voiding Method Urinal Urinal # Bowel Movements 1 - Exam - Constitutional General appearance: Present: average body habitus, cooperative, no acute distress - EENT Eyes: Present: anicteric sclerae, EOMI, PERRLA, normal appearance ENT: Present: hearing grossly normal, normal oropharynx Ears: bilateral: normal - Neck Neck: Present: normal ROM. Absent: lymphadenopathy, rigidity, thyromegaly Carotids: negative: bruit present Thyroid: bilateral: normal size, negative: enlarged, nodule - Respiratory Respiratory: bilateral: CTA, negative: rales, rhonchi, wheezing - Cardiovascular Rhythm: regular Heart sounds: normal: S1, S2 Abnormal Heart Sounds: Absent: systolic murmur, diastolic murmur - Gastrointestinal General gastrointestinal: Present: normal bowel sounds, soft. Absent: distended, organomegaly, tenderness - Genitourinary Genitourinary Comment(s): deferred - Integumentary Integumentary: Present: normal turgor. Absent: jaundiced, rash, ulcer - Neurologic Neurologic: Present: CNII-XII intact. Absent: focal deficits - Musculoskeletal Musculoskeletal: Present: gait normal, strength equal bilaterally - Psychiatric Psychiatric: Present: A&O x's 3, appropriate affect, intact judgment & insight - Labs CBC & Chem 7: 03/20/21 13:08 03/21/21 12:56 Labs: Abnormal Lab Results - Last 24 Hours (Table) 03/20/21 03/20/21 03/20/21 Range/Units 13:08 13:08 21:16 APTT 32.1 H (22.0-30.0) sec Potassium 5.5 H (3.5-5.1) mmol/L Chloride (98-107) mmol/L BUN (9-20) mg/dL Glucose (74-99) mg/dL Magnesium (1.6-2.3) mg/dL Troponin I 0.129 H* (0.000-0.034) ng/mL 03/20/21 03/21/21 03/21/21 Range/Units 21:16 03:20 03:20 APTT 69.4 H (22.0-30.0) sec Potassium (3.5-5.1) mmol/L Chloride (98-107) mmol/L BUN (9-20) mg/dL Glucose (74-99) mg/dL Magnesium (1.6-2.3) mg/dL Troponin I 0.103 H* 0.091 H* (0.000-0.034) ng/mL 03/21/21 Range/Units 03:20 APTT (22.0-30.0) sec Potassium (3.5-5.1) mmol/L Chloride 109 H (98-107) mmol/L BUN 22 H (9-20) mg/dL Glucose 111 H (74-99) mg/dL Magnesium 1.5 L (1.6-2.3) mg/dL Troponin I (0.000-0.034) ng/mL Assessment and Plan Assessment: 1. Non-ST elevation MS; we will monitor EKG and trend troponin; continue with home dose of aspirin 81 daily milligrams daily, heparin IV per protocol; rec ommend 2-D echo; consult cardiology 2. Uncontrolled hypertension; patient takes lisinopril 2012 0.5 mg daily 3. Hyperlipidemia; Lipitor 80 mg by mouth daily at bedtime 4. Hyperuricemia/gout; continue with home dose ofFebuxostat 40 mg daily, hold Gissane 0.6 mg daily 5. Neuropathy; Neurontin 300 mg by mouth 3 times a day DVT prophylaxis; SCDs/IV heparin CODE STATUS; full code
[2021-03-21] MEDS ORDERED: NITROGLYCERIN-D5W PMX 50 MG in DEXTROSE/WATER 1 250ML.BAG IV SCH (20:00)
[2021-03-21 20:32] LABS: Glucose,Whole Blood 98 mg/dL (75-99)
[2021-03-21] MEDS: ATORVASTATIN 80 MG TAB PO SCH (21:32)
[2021-03-21] MEDS ORDERED: NITROPRUSSIDE 50 MG in DEXTROSE 5% IN WATER 250 ML IV ONE ×2 (22:00)
[2021-03-22 03:47] LABS: Basophils % (A) 0 %; Eosinophils # (A) 0.2 k/uL (0-0.7); Eosinophils % (A) 2 %; HCT 42.8 % (39.0-53.0); HGB 14.5 gm/dL (13.0-17.5); Lymphocytes # (A) 1.7 k/uL (1.0-4.8); Lymphocytes % (A) 15 %; MCH 32.1 pg (25.0-35.0); MCV 94.4 fL (80.0-100.0); Monocytes # (A) 0.9 k/uL (0-1.0); Monocytes % (A) 7 %; Neutrophils # (A) 8.8 k/uL (1.3-7.7); Neutrophils % (A) 74 %; Platelet Count 212 k/uL (150-450); RBC 4.53 m/uL (4.30-5.90); RDW 13.5 % (11.5-15.5); WBC 11.8 k/uL (3.8-10.6)
[2021-03-22 04:03] LABS: Calcium 9.6 mg/dL (8.4-10.2); Potassium 4.1 mmol/L (3.5-5.1)
[2021-03-22] MEDS ORDERED: lisinopriL 20 MG TAB PO STA (05:33)
--- NOTE | 2021-03-22 06:00 | P.PN ---
Subjective Progress Note Date: 03/22/21 Principal diagnosis: Hypertension urgency This is a pleasant 85-year-old gentleman who was admitted to the hospital with hypertension emergency. He was found to have mildly abnormal troponin and that was treated medically. Because we had difficulty controlling his blood pressure orally he was transferred to the intensive. Were initially he was started on nitroglycerin but he did not tolerate that and subsequently he was switched to nitroprusside. On nitroprusside the pressure seems to be at her controlled. He is on a very small dose. I'm going to increase the dose of FABIOLA inhibitor with lisinopril and also add chlorthalidone to the current medical regimen in additio n to Aldactone. Also going to a small dose of Norvasc. An echo is in process to be done. Objective - Vital Signs Vital signs: Vital Signs Temp 97.9 F 03/22/21 04:00 Pulse 73 03/22/21 05:00 Resp 20 03/22/21 05:00 BP 154/86 03/22/21 05:00 Pulse Ox 93 L 03/22/21 05:00 Intake & Output 03/21/21 03/21/21 03/22/21 06:59 18:59 06:59 Intake Total 156.351 420 8.125 Output Total 215 2000 250 Balance -58.649 -1580 -241.875 Weight 99.7 kg 97.4 kg Intake: Intake, IV Titration 156.351 8.125 Amount Heparin Sod,Pork in 0.45% 156.351 NaCl 25,000 unit In 0.45 % NaCl 1 250ml.bag @ 9.93 UNITS/KG/HR 9.999 mls/hr IV .Q24H [facility] Rx#: [id number] Nitroglycerin-D5w Pmx 50 5.375 mg In Dextrose/Water 1 250ml.bag @ 5 MCG/MIN 1.5 mls/hr IV .Q24H [facility] Rx#: [id number] Nitroprusside 50 mg In 2.750 Dextrose 5% in Water 250 ml @ 0 mls/hr IV .Q0M [facility] Rx#:[id number] Oral 420 Output: Urine 215 2000 250 Other: Voiding Method Urinal Urinal Urinal # Bowel Movements 1 - Constitutional General appearance: Present: no acute distress - Respiratory Respiratory: bilateral: diminished - Cardiovascular Rhythm: regular Heart sounds: normal: S1, S2 - Labs CBC & Chem 7: 03/22/21 03:24 03/22/21 03:24 Labs: Abnormal Lab Results - Last 24 Hours (Table) 03/22/21 03/22/21 Range/Units 03:24 03:24 WBC 11.8 H (3.8-10.6) k/uL Neutrophils # 8.8 H (1.3-7.7) k/uL BUN 22 H (9-20) mg/dL Glucose 118 H (74-99) mg/dL Assessment and Plan Assessment: Assessment #1 hypertension emergency #2 dyslipidemia #3 evidence of myocardial injury Plan #1 increase the dose of lisinopril #2 add chlorthalidone #3 continue the current dose of Aldactone #4 add Norvasc #5 try to wean the patient from nitroprusside #6 follow up on the echo
[2021-03-22] MEDS: DOCUSATE 100 MG CAP PO SCH (08:26)
[2021-03-22] MEDS: ASPIRIN 81 MG PO SCH (08:26)
[2021-03-22] MEDS: GABAPENTIN 300 MG CAP PO SCH ×3 (08:26→20:36)
[2021-03-22] MEDS: SPIRONOLACTONE 25 MG TAB PO SCH (08:26)
[2021-03-22] MEDS: amLODIPine 5 MG TAB PO SCH (08:27)
[2021-03-22] MEDS: PANTOPRAZOLE 40 MG/10 ML VIAL IV SCH (08:27)
[2021-03-22] MEDS: allopurinoL 100 MG TAB PO SCH (08:27)
[2021-03-22] MEDS: ASCORBIC ACID 500 MG TAB PO SCH (08:27)
[2021-03-22] MEDS ORDERED: LISINOPRIL-HCTZ 20-12.5 MG 1 EACH TAB PO SCH (09:00)
--- NOTE | 2021-03-22 10:03 | ECHOF ---
Referral Reason:HTN MEASUREMENTS -------- HEIGHT: 152.4 cm WEIGHT: 99.3 kg BP: RVIDd: 3.6 cm (< 3.3) IVSd: 1.7 cm (0.6 - 1.1) LVIDd: 5.3 cm (3.9 - 5.3) LVPWd: 1.7 cm (0.6 - 1.1) IVSs: 2.1 cm LVIDs: 4.7 cm LVPWs: 1.3 cm LAESV Index (A-L): 40.29 ml/m Ao Diam: 3.2 cm (2.0 - 3.7) AV Cusp: 1.7 cm (1.5 - 2.6) MV EXCURSION: 19.544 mm (> 18.000) MV EF SLOPE: 147 mm/s (70 - 150) EPSS: 0.4 cm MV E Barrett: 0.38 m/s MV DecT: 304 ms MV A Barrett: 0.87 m/s MV E/A Ratio: 0.43 RAP: 5.00 mmHg RVSP: 27.65 mmHg FINDINGS -------- Resting bradycardia (HR<60bpm). This was a technically adequate study. The left ventricular size is normal. There is severe concentric left ventricular hypertrophy. Ove rall left ventricular systolic function is low-normal with, an EF between 50 - 55 %. The right ventricle is normal in size. LA is severely dilated >40 ml/m2 The right atrial size is normal. Mild mitral regurgitation is present. Mild tricuspid regurgitation present. Right ventricular systolic pressure is normal at < 35 mmHg. There is no pulmonic regurgitation present. The aortic root size is normal. Echo free space represents a pericardial fat pad. CONCLUSIONS -------- 1. The left ventricular size is normal. 2. There is severe concentric left ventricular hypertrophy. 3. Overall left ventricular systolic function is low-normal with, an EF between 50 - 55 %. 4. The right ventricle is normal in size. 5. LA is severely dilated >40 ml/m2 6. The right atrial size is normal. 7. Mild mitral regurgitation is present. 8. Mild tricuspid regurgitation present. 9. The aortic root size is normal. 10. Echo free space represents a pericardial fat pad. BACKER UP: Marycruz Okeefe RDCS
[2021-03-22] MEDS: CHLORTHALIDONE 25 MG TAB PO SCH (10:17)
--- NOTE | 2021-03-22 17:11 | P.PN ---
Subjective Progress Note Date: 03/22/21 Principal diagnosis: Elevated troponin Uncontrolled hypertension 85-year-old male patient with history of hypertension, presents to ED with complaint of high blood pressure; patient reports that his systolic blood pressure has been running between 200-270; patient reports medication changed by PCP last week when he was taken off nifedipine due to lower extremity swelling and was started on lisinopril; patient reports progressive worsening in blood pr essure since that; patient denies any chest shortness of breath Workup in ED including an EKG revealed sinus bradycardia without any heart block; vital signs included a heart rate of 50 and occasionally dipping down to 40s in ED; lab review reveals CBC unremarkable, potassium 5.5; creatinine 1.15 w ith BUN of 24, troponin 0.129; blood pressure was found to be elevated at 180/64 Patient is placed on IV heparin infusion and is admitted to the hospital for further evaluation of non-ST elevation NM and bradycardia 03/22/2021 Patient is seen and evaluated sitting up in bedside chair; patient was transferred to ICU due to hypertensive urgency; patient was initially started on IV nitroglycerin infusion, which was turned off because of patient's intolerance; patient was later placed on IV nitroprusside infusion which did control her blood pressure Vital signs are stable at this point with a temperature of 97.9, pulse 73, R pressure 154/86 Patient has been evaluated by cardiology and recommending to increase dose of lisinopril along with addition of chlorthalidone and small dose of Norvasc; continue current dose of Aldactone Patient does have improved blood pressure readings and will be transferred to selective care unit and will remain on telemetry Objective - Vital Signs Vital signs: Vital Signs Temp 97.9 F 03/22/21 04:00 Pulse 75 03/22/21 07:00 Resp 15 03/22/21 07:00 BP 148/81 03/22/21 07:00 Pulse Ox 93 L 03/22/21 07:00 Intake & Output 03/21/21 03/22/21 03/22/21 18:59 06:59 18:59 Intake Total 420 8.975 Output Total 1999 250 0 Balance -1580 -241.025 0 Weight 97.4 kg Intake: Intake, IV Titration 8.975 Amount Nitroglycerin-D5w Pmx 50 5.375 mg In Dextrose/Water 1 250ml.bag @ 5 MCG/MIN 1.5 mls/hr IV .Q24H [facility] Rx#: [id number] Nitroprusside 50 mg In 3.600 Dextrose 5% in Water 250 ml @ 0 mls/hr IV .Q0M [facility] Rx#:[id number] Oral 420 Output: Urine 2000 250 0 Other: Voiding Method Urinal Urinal # Bowel Movements 1 - Exam - Constitutional General appearance: Present: average body habitus, cooperative, no acute distress - EENT Eyes: Present: anicteric sclerae, EOMI, PERRLA, normal appearance ENT: Present: hearing grossly normal, normal oropharynx Ears: bilateral: normal - Neck Neck: Present: normal ROM. Absent: lymphadenopathy, rigidity, thyromegaly Carotids: negative: bruit present Thyroid: bilateral: normal size, negative: enlarged, nodule - Respiratory Respiratory: bilateral: CTA, negative: rales, rhonchi, wheezing - Cardiovascular Rhythm: regular Heart sounds: normal: S1, S2 Abnormal Heart Sounds: Absent: systolic murmur, diastolic murmur - Gastrointestinal General gastrointestinal: Present: normal bowel sounds, soft. Absent: distended, organomegaly, tenderness - Genitourinary Genitourinary Comment(s): deferred - Integumentary Integumentary: Present: normal turgor. Absent: jaundiced, rash, ulcer - Neurologic Neurologic: Present: CNII-XII intact. Absent: focal deficits - Musculoskeletal Musculoskeletal: Present: gait normal, strength equal bilaterally - Psychiatric Psychiatric: Present: A&O x's 3, appropriate affect, intact judgment & insight - Labs CBC & Chem 7: 03/22/21 03:24 03/22/21 03:24 Labs: Abnormal Lab Results - Last 24 Hours (Table) 03/22/21 03/22/21 Range/Units 03:24 03:24 WBC 11.8 H (3.8-10.6) k/uL Neutrophils # 8.8 H (1.3-7.7) k/uL BUN 22 H (9-20) mg/dL Glucose 118 H (74-99) mg/dL Assessment and Plan Assessment: 1. Non-ST elevation NM; we will monitor EKG and trend troponin; continue with home dose of aspirin 81 daily milligrams daily, heparin IV per protocol; recommend 2-D echo; consult cardiology 2. Uncontrolled hypertension; patient takes lisinopril 2012 0.5 mg daily 3. Hyperlipidemia; Lipitor 80 mg by mouth daily at bedtime 4. Hyperuricemia/gout; continue with home dose ofFebuxostat 40 mg daily, hold Gissane 0.6 mg daily 5. Neuropathy; Neurontin 300 mg by mouth 3 times a day DVT prophylaxis; SCDs/IV heparin CODE STATUS; full code
[2021-03-22] MEDS: ATORVASTATIN 80 MG TAB PO SCH (20:36)
[2021-03-23 03:59] LABS: HCT 41.7 % (39.0-53.0); HGB 14.8 gm/dL (13.0-17.5); MCH 33.5 pg (25.0-35.0); MCHC 35.6 g/dL (31.0-37.0); Platelet Count 211 k/uL (150-450); RBC 4.43 m/uL (4.30-5.90); RDW 13.4 % (11.5-15.5); WBC 9.5 k/uL (3.8-10.6)
[2021-03-23 04:04] LABS: Calcium 9.6 mg/dL (8.4-10.2)
[2021-03-23] MEDS: PANTOPRAZOLE 40 MG TABLET PO SCH (06:39)
--- NOTE | 2021-03-23 08:03 | P.PN ---
Subjective Progress Note Date: 03/23/21 Principal diagnosis: Hypertension urgency The patient was seen this morning. The lung. He is off nitroprusside. He continues to be on thiazide diuretics as well as aldosterone antagonist as well as FABIOLA inhibitor. The pressure seems to be under reasonable control. He denies any symptoms of chest pain or chest discomfort and denies any shortness of breath and no dizziness or lightheadedness. The echo showed normal left ventricular systolic function. The patient is asking to go home. Objective - Vital Signs Vital signs: Vital Signs Temp 97.6 F 03/23/21 03:32 Pulse 81 03/23/21 03:32 Resp 11 L 03/23/21 03:32 BP 150/94 03/23/21 03:32 Pulse Ox 95 03/23/21 03:32 Intake & Output 03/22/21 03/23/21 03/23/21 18:59 06:59 18:59 Output Total 0 Balance 0 Weight 97.2 kg Output: Urine 0 Other: Voiding Method Urinal Urinal # Voids 1 1 # Bowel Movements 1 - Constitutional General appearance: Present: no acute distress - Respiratory Respiratory: bilateral: diminished - Cardiovascular Rhythm: regular - Labs CBC & Chem 7: 03/23/21 03:04 03/23/21 03:04 Labs: Abnormal Lab Results - Last 24 Hours (Table) 03/23/21 Range/Units 03:04 BUN 30 H (9-20) mg/dL Creatinine 1.28 H (0.66-1.25) mg/dL Glucose 114 H (74-99) mg/dL Assessment and Plan Assessment: Assessment #1 hypertension emergency #2 dyslipidemia #3 evidence of myocardial injury Plan #1 the patient is off nitroprusside #2 continue the current dose of lisinopril and Norvasc and chlorthalidone as well as Aldactone #3 he is requesting to go home #4 the echo showed normal left ventricular systolic function
[2021-03-23] MEDS: CHLORTHALIDONE 25 MG TAB PO SCH (08:16)
[2021-03-23] MEDS: ASCORBIC ACID 500 MG TAB PO SCH (08:16)
[2021-03-23] MEDS: ASPIRIN 81 MG PO SCH (08:16)
[2021-03-23] MEDS: SPIRONOLACTONE 25 MG TAB PO SCH (08:17)
[2021-03-23] MEDS: allopurinoL 100 MG TAB PO SCH (08:17)
[2021-03-23] MEDS: amLODIPine 5 MG TAB PO SCH (08:17)
[2021-03-23] MEDS: lisinopriL 20 MG TAB PO SCH (08:17)
[2021-03-23] MEDS: GABAPENTIN 300 MG CAP PO SCH ×3 (08:17→21:21)
[2021-03-23] MEDS: DOCUSATE 100 MG CAP PO SCH (08:18)
[2021-03-23] MEDS: ATORVASTATIN 80 MG TAB PO SCH (21:22)
--- NOTE | 2021-03-23 22:04 | P.PN ---
Subjective This is a pleasant 85 years old male with multiple medical problems will follow up with the [place] [facility]. Presents because of mild hypertension and high blood pressure found to have hypertensive emergency. Patient is monitored in the ICU and treated with drapes, currently he is off any drips and his blood pressure control with multiple medication including lisinopril 40 mg, chlorthalidone 25 mg daily, Norvasc 5 mg daily and Aldactone 25 mg daily. Acute blood pressure is 154/93. 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 For discharge today. Creatinine is slightly trending up 1.1, 1.2-1.28 we will keep the patient overnight to monitor his creatinine tomorrow Possible discharge in 24-48 hours if he remains stable and improving Discussed plan with the patient and he agrees Objective - Vital Signs Vital signs: Vital Signs Temp 97 F L 03/23/21 12:00 Pulse 68 03/23/21 12:00 Resp 18 03/23/21 12:00 BP 153/80 03/23/21 12:00 Pulse Ox 95 03/23/21 12:00 Intake & Output 03/22/21 03/23/21 03/23/21 18:59 06:59 18:59 Output Total 0 Balance 0 Weight 97.2 kg Output: Urine 0 Other: Voiding Method Urinal Urinal Urinal # Voids 1 1 # Bowel Movements 1 - Exam GENERAL: The patient is alert and oriented x3, not in any acute distress. Well developed, well nourished. HEENT: Pupils are round and equally reacting to light. EOMI. No scleral icterus. No conjunctival pallor. Normocephalic, atraumatic. No pharyngeal erythema. No thyromegaly. CARDIOVASCULAR: S1 and S2 present. No murmurs, rubs, or gallops. PULMONARY: Chest is clear to auscultation, no wheezing or crackles. ABDOMEN: Soft, nontender, nondistended, normoactive bowel sounds. No palpable organomegaly. MUSCULOSKELETAL: No joint swelling or deformity. EXTREMITIES: No cyanosis, clubbing, or pedal edema. NEUROLOGICAL: Gross neurological examination did not reveal any focal deficits. SKIN: No rashes. no petechiae. - Labs CBC & Chem 7: 03/23/21 03:04 03/23/21 03:04 Labs: Abnormal Lab Results - Last 24 Hours (Table) 03/23/21 Range/Units 03:04 BUN 30 H (9-20) mg/dL Creatinine 1.28 H (0.66-1.25) mg/dL Glucose 114 H (74-99) mg/dL Assessment and Plan Assessment: Hypertensive emergency, improved Mild acute kidney injury secondary to medication Mild myocardial injury with no evidence of ischemia Plan: This is a pleasant 85 years old male who presents with uncontrolled hypertension. Continue with multiple antihypertensive medication including lisinopril, chlorthalidone, Norvasc and Aldactone Shock Absorber Installer cleared the patient for discharge Recheck creatinine tomorrow Labs and medication were reviewed.. Continue same treatment. Continue with symptomatic treatment. Resume home medication. Monitor lytes and vitals. DVT and GI prophylaxis. Further recommendations as per clinical course of the patient DVT prophylaxis: Subcutaneous heparin GI Prophylaxis: Pppi
[2021-03-23] MEDS: hydrALAZINE HCL 20 MG/ML 1 ML VIAL IVP PRN (23:28)
[2021-03-23] MEDS: HEPARIN SODIUM,PORCINE/PF 5,000 UNIT/0.5 ML SYRINGE SQ SCH (23:28)
[2021-03-24 02:19] LABS: Calcium 9.7 mg/dL (8.4-10.2); Potassium 4.3 mmol/L (3.5-5.1)
[2021-03-24 02:31] LABS: Basophils # (A) 0.1 k/uL (0-0.2); Basophils % (A) 0 %; Eosinophils # (A) 0.7 k/uL (0-0.7); Eosinophils % (A) 6 %; HCT 47.3 % (39.0-53.0); HGB 16.2 gm/dL (13.0-17.5); Lymphocytes # (A) 2.8 k/uL (1.0-4.8); Lymphocytes % (A) 23 %; MCH 32.6 pg (25.0-35.0); MCHC 34.2 g/dL (31.0-37.0); MCV 95.5 fL (80.0-100.0); Mean Platelet Volume 8.3; Monocytes # (A) 0.8 k/uL (0-1.0); Monocytes % (A) 6 %; Neutrophils # (A) 7.7 k/uL (1.3-7.7); Neutrophils % (A) 63 %; Platelet Count 215 k/uL (150-450); RBC 4.95 m/uL (4.30-5.90); RDW 13.6 % (11.5-15.5); WBC 12.2 k/uL (3.8-10.6)
[2021-03-24] MEDS: PANTOPRAZOLE 40 MG TABLET PO SCH (07:15)
[2021-03-24] MEDS: allopurinoL 100 MG TAB PO SCH (09:15)
[2021-03-24] MEDS: ASCORBIC ACID 500 MG TAB PO SCH (09:16)
[2021-03-24] MEDS: ASPIRIN 81 MG PO SCH (09:16)
[2021-03-24] MEDS: CHLORTHALIDONE 25 MG TAB PO SCH (09:16)
[2021-03-24] MEDS: amLODIPine 5 MG TAB PO SCH (09:16)
[2021-03-24] MEDS: GABAPENTIN 300 MG CAP PO SCH (09:16)
[2021-03-24] MEDS: DOCUSATE 100 MG CAP PO SCH (09:16)
[2021-03-24] MEDS: lisinopriL 20 MG TAB PO SCH (09:17)
[2021-03-24] MEDS: SPIRONOLACTONE 25 MG TAB PO SCH (09:17)
[2021-03-24] MEDS: HEPARIN SODIUM,PORCINE/PF 5,000 UNIT/0.5 ML SYRINGE SQ SCH (09:17)
--- NOTE | 2021-03-24 10:10 | XR ---
EXAMINATION TYPE: XR chest 1V DATE OF EXAM: 03/24/2021 CLINICAL HISTORY: Difficulty breathing and leukocytosis. TECHNIQUE: Single AP portable upright view of the chest is obtained. COMPARISON: Chest x-ray from 4 days earlier FINDINGS: Chronic parenchymal changes with new lateral left lower lung opacity. Right lung remains c lear. Cardiac silhouette size stable and within normal limits with atherosclerotic and ectatic thorac ic aorta. Osseous structures are intact. IMPRESSION: Chronic changes with developing lateral left lower lung acute infiltrate. Correlate to ex clude covid-19 infection in current environment with peripheral basilar location.
--- NOTE | 2021-03-24 10:12 | PN ---
PROGRESS NOTE Mr. Conde is an 85-year-old male who presented with uncontrolled hypertension. He is feeling better today. He is sitting up in the chair. His breathing is stable. He denies any dizziness or palpitation. He denies any nausea. He had episode of left bundle branch block conduction, intermittently. He continues to be on amlodipine 5 mg daily, aspirin once a day, Lipitor 80 mg daily, chlorthalidone 25 mg daily, lisinopril 40 mg daily, spironolactone 25 mg daily. PHYSICAL EXAMINATION: Blood pressure running in the 130s with a heart rate in the 70s. Lungs: Clear. Heart is rhythm S1-S2, no S3 with systolic ejection murmur. No diastolic murmur. No rub. Abdomen: Soft nontender. Extremities: No edema. LAB DATA: Lab data revealed BUN and creatinine 31 and 0.23, potassium of 4.3, hemoglobin 16.2. IMPRESSION: 1. Uncontrolled hypertension under better control. 2. Intermittent left bundle branch block conduction. 3. Hyperlipidemia. RECOMMENDATIONS: From the cardiac standpoint, he is stable on present therapy. We will increase his activity. If he remains stable, I would expect he should be able to be discharged home soon and followed as an outpatient to further optimize his antihypertensive regimen. MMODL / IJN: [id number] /
[2021-03-24] MEDS ORDERED: ALPRAZolam 0.5 MG TAB PO PRN (10:23)
[2021-03-24] MEDS ORDERED: AMOXIC-POT CLAV 875-125MG 1 EACH TAB PO SCH (10:30)
[2021-03-24 10:32] LABS: Basophils % (A) 0 %; Eosinophils # (A) 0.5 k/uL (0-0.7); Eosinophils % (A) 5 %; HCT 45.5 % (39.0-53.0); HGB 15.5 gm/dL (13.0-17.5); Lymphocytes # (A) 2.5 k/uL (1.0-4.8); Lymphocytes % (A) 24 %; MCH 32.7 pg (25.0-35.0); MCHC 34.1 g/dL (31.0-37.0); MCV 95.9 fL (80.0-100.0); Mean Platelet Volume 7.9; Monocytes # (A) 0.7 k/uL (0-1.0); Monocytes % (A) 7 %; Neutrophils # (A) 6.4 k/uL (1.3-7.7); Neutrophils % (A) 62 %; Platelet Count 227 k/uL (150-450); RBC 4.74 m/uL (4.30-5.90); RDW 13.6 % (11.5-15.5); WBC 10.3 k/uL (3.8-10.6)
[2021-03-24 10:45] LABS: Appearance,Urine Clear (Clear); Bilirubin,Urine Negative (Negative); Blood,Urine Negative (Negative); Color,Urine Yellow; Glucose,Urine (UA) Negative (Negative); Hyaline Casts,Urine 1 /lpf (0-2); Ketones,Urine Negative (Negative); Leukocyte Esterase,Urine Negative (Negative); Mucus,Urine Rare /hpf; Nitrite,Urine Negative (Negative); PH, Urine 5.5 (5.0-8.0); Protein,Urine 1+ (Negative); RBC,Urine 1 /hpf (0-5); Specific Gravity,Urine 1.014 (1.001-1.035); Squamous Epithelial Cell,Urine <1 /hpf (0-4); Urobilinogen,Urine <2.0 mg/dL (<2.0); WBC,Urine 2 /hpf (0-5)
[2021-03-24 14:02] VITALS: BP 143/80; PULSE 82; RESP 18; TEMP 97.8
--- NOTE | 2021-03-24 19:41 | P.DS ---
Providers Date of admission: 03/20/21 14:47 Attending physician: Savage Coleman MD Consults: 03/20/21 15:24 Consult Physician Routine Consulting Provider: Lorena Beauchamp Consult Reason/Comments: bradycardia, elevated troponin Do you want consulting provider notified?: Yes 03/24/21 10:13 Consult Physician Urgent Consulting Provider: Britney Juan Consult Reason/Comments: possible pna Do you want consulting provider notified?: Yes Primary care physician: [facility] Hospital Course: Diagnoses: Hypertensive emergency, improved Walking pneumonia. Left lower lobe pneumonia Mild myocardial injury with no evidence of ischemia Hospital course: This is a pleasant 85 years old male with multiple medical problems will follow up with the [place] clinic. Presents because of high blood pressure found to have hypertensive emergency. Patient is monitored in the ICU and treated with drips, currently he is off any drips and his blood pressure control with multiple medication including lisinopril 40 mg, chlorthalidone 25 mg daily, Norvasc 5 mg daily and Aldactone 25 mg daily. Acute blood pressure is 143/80 upon discharge. 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 For discharge today. Creatinine is slightly trending up 1.1, 1.2-1.28 , repeat creatinine today is back to normal at 1.23 and is stable. He had mild leukocytosis and chest x-ray showing possible left lower lobe pneumonia, with mild leukocytosis of 12 K, came back to normal at 10 K. C-reactive protein mildly elevated at 2.0. Patient was started on Augmentin Patient denies any chest pain or dyspnea and he checked his oxygen at rest and exertion, he does not qualify for oxygen upon discharge. Patient wants to go home today. No other complaints. No GI or urinary complaints. No dysuria or urgency. No fever. He is hemodynamically stable. He was cleared for discharge by photovoltaic technician Problems and management plan were discussed with the patient and he verbalized understanding and acceptance Patient was found stable and can be discharged home however he needs follow-up as an outpatient. Patient was instructed to follow up with PCP within one week and patient agrees. Appointment was made for him with his [place] clinic on 04/06, for I talked to his doctor Gen Candelario from the [place] who the patient follow up with and I discussed the case with her, she told me they going to call and tonight or tomorrow morning to fit him in for follow-up appointment within 5 days with recommendation to repeat chest x-ray. Patient will be discharged on a short course of oral Augmentin which he tolerated well. Also patient was instructed to follow up with photovoltaic technician Dr. Sánchez in one week and he agrees Physical exam Gen: patient is a AAOx3, no distress CVS: S1-S2, RRR, no murmur Lungs: B/L CTA, no wheezing Abdomen: soft, no distention, no tenderness, positive bowel sounds Extremity: no leg edema or induration Time spent more than 35 minutes Patient Condition at Discharge: Fair Plan - Discharge Summary Discharge Rx Participant: No New Discharge Prescriptions: New amLODIPine [Norvasc] 5 mg PO DAILY #30 tab lisinopriL [Zestril] 40 mg PO DAILY #30 tab Spironolactone [Aldactone] 25 mg PO DAILY #30 tab Chlorthalidone [Hygroton] 25 mg PO DAILY #30 tab Amoxic-Pot Clav 875-125Mg [Augmentin 875-125] 1 each PO Q12HR #10 tab Continue Pantoprazole [Protonix] 40 mg PO BID Multivitamins, Thera [Multivitamin (formulary)] 1 tab PO DAILY Gabapentin 600 mg PO TID Cyclobenzaprine [Flexeril] 10 mg PO BID PRN PRN Reason: Muscle Spasm Ascorbic Acid [Vitamin C] 500 mg PO DAILY [place]-3 Fatty Acids [[place]-3] 1,000 mg PO DAILY Glucosamine Tab 1 tab PO DAILY Lidocaine 5% Patch [Lidoderm 5% Patch] 1 patch TOPICAL Q12H Febuxostat 40 mg PO DAILY Docusate [Colace] 100 mg PO DAILY Carbamide Peroxide [Debrox Otic] 5 - 10 drops LEFT EAR BID Atorvastatin [Lipitor] 80 mg PO HS Aspirin EC [Ecotrin Low Dose] 81 mg PO DAILY Discontinued Colchicine 0.6 mg PO DAILY PRN PRN Reason: GOUT Lisinopril-Hctz 20-12.5 mg [Zestoretic 20-12.5] 1 tab PO DAILY Discharge Medication List Ascorbic Acid [Vitamin C] 500 mg PO DAILY 03/20/21 [History] Aspirin EC [Ecotrin Low Dose] 81 mg PO DAILY 03/20/21 [History] Atorvastatin [Lipitor] 80 mg PO HS 03/20/21 [History] Carbamide Peroxide [Debrox Otic] 5 - 10 drops LEFT EAR BID 03/20/21 [History] Cyclobenzaprine [Flexeril] 10 mg PO BID PRN 03/20/21 [History] Docusate [Colace] 100 mg PO DAILY 03/20/21 [History] Febuxostat 40 mg PO DAILY 03/20/21 [History] Gabapentin 600 mg PO TID 03/20/21 [History] Glucosamine Tab 1 tab PO DAILY 03/20/21 [History] Lidocaine 5% Patch [Lidoderm 5% Patch] 1 patch TOPICAL Q12H 03/20/21 [History] Multivitamins, Thera [Multivitamin (formulary)] 1 tab PO DAILY 03/20/21 [History] [place]-3 Fatty Acids [[place]-3] 1,000 mg PO DAILY 03/20/21 [History] Pantoprazole [Protonix] 40 mg PO BID 03/20/21 [History] Chlorthalidone [Hygroton] 25 mg PO DAILY #30 tab 03/23/21 [Rx] Spironolactone [Aldactone] 25 mg PO DAILY #30 tab 03/23/21 [Rx] amLODIPine [Norvasc] 5 mg PO DAILY #30 tab 03/23/21 [Rx] lisinopriL [Zestril] 40 mg PO DAILY #30 tab 03/23/21 [Rx] Amoxic-Pot Clav 875-125Mg [Augmentin 875-125] 1 each PO Q12HR #10 tab 03/24/21 [Rx] Follow up Appointment(s)/Referral(s): Jimmie Sánchez MD [STAFF PHYSICIAN] - 1 Week (per office they will speak to Princess and call the patient with an appointment ) [facility] [Primary Care Provider] - 04/06/21 4:00 pm Activity/Diet/Wound Care/Special Instructions: heart healthy diet activity is restricted till you see your doctor Discharge Disposition: HOME SELF-CARE
--- NOTE | 2021-03-26 09:28 | CDI ---
Documentation Clarification Form Date: 03/26/2021 09:14:27 AM From: Flakito Herr Admit Date: 03/20/2021 02:47:00 PM Patient Name: Paras Conde Visit Number: [id number] Discharge Date: 03/24/2021 03:12:00 PM ATTENTION: The Clinical Documentation Specialists (CDI) and [facility] Coding Staff appreciate your assistance in clarifying documentation. Please respond to the clarification below the line at the bottom and electronically sign. The CDI & [facility] Coding staff will review the response and follow-up if needed. Please note: Queries are made part of the Legal Health Record. If you have any questions, please contact the author of this message via ITS. Dr. Molina E Sheet Conflicting documentation has been found in the medical record. As attending physician, please provide clarification. Cardiac consult indicates slightly elevated troponin not consistant with acute coronary syndrome. Progress note 03/22 indicates NSTEMI. Discharge summary states mild myocardial injury. History/Risk Factors: HTN urgency, elevated troponin Clinical Indicators: Troponin 0.129, CXR normal, Echo 55-60% LV systolic low normal Please clarify which diagnosis is most appropriate: [ ] NSTEMI [ ] elevated troponin only [ ] Other (please specify) [ ] Unable to determine elevated troponin only Other, per supervisor paint roller covers LUKED
== END 2021-03-24 15:12 | disposition home or self-care (01) | DRG 304 ==
LOC: EC 12:12 → 3SCARD 14:47 → 2SICU 03-21 21:10
PROVIDERS: ADMIT Internal Medicine; ATTEND Internal Medicine
DX: I16.1 Hypertensive emergency (principal); J18.9 Pneumonia, unspecified organism; N17.9 Acute kidney failure, unspecified; I10 Essential (primary) hypertension; E78.5 Hyperlipidemia, unspecified; I44.7 Left bundle-branch block, unspecified; M10.9 Gout, unspecified; G62.9 Polyneuropathy, unspecified; Z79.82 Long term (current) use of aspirin; Z79.899 Other long term (current) drug therapy; Z98.1 Arthrodesis status; K21.9 Gastro-esophageal reflux disease without esophagitis; R00.1 Bradycardia, unspecified; Z20.822 Contact with and (suspected) exposure to COVID-19
CPT/HCPCS: 36415; 71045; 80048; 80053; 81001; 83735; 83880; 84132; 84145; 84484; 85025; 85027; 85610; 85730; 86140; 87635; 93005; 93306; 99291

== ENCOUNTER 2021-12-15 09:46 | Inpatient (IN) | payer OTHER, MEDICARE ==
[~2021-12-15 09:46] MED LIST: ceFAZolin 1 GM in SODIUM CHLORIDE 0.9% IRRIG BTL 250 ML IRRIGATION PRN
--- NOTE | 2021-12-15 10:11 | ED ---
SOB HPI - General Chief Complaint: Shortness of Breath Stated Complaint: ADINA Time Seen by Provider: 12/15/21 09:52 Source: patient Mode of arrival: ambulatory Limitations: no limitations - History of Present Illness Initial Comments: 89-year-old male with past medical history of hypertension and lipidemia presents emergency department for shortness of breath. States that he has been short of breath for the past 5 days. Shortness of breath is with exertion. Denies previous history of pulmonary disease. Admits to history of hypertension and takes lisinopril and hydrochlorothiazide. Denies history of coronary artery disease. No current chest pain. Denies fevers chills or cough. No recent medication changes. No other alleviating, precipitating or modifying factors - Related Data Home Medications Medication Instructions Recorded Confirmed Ascorbic Acid [Vitamin C] 500 mg PO DAILY 03/20/21 12/15/21 Aspirin EC [Ecotrin Low Dose] 81 mg PO DAILY 03/20/21 12/15/21 Atorvastatin [Lipitor] 80 mg PO HS 03/20/21 12/15/21 Cyclobenzaprine [Flexeril] 10 mg PO BID PRN 03/20/21 12/15/21 Docusate [Colace] 100 mg PO DAILY 03/20/21 12/15/21 Febuxostat 40 mg PO DAILY 03/20/21 12/15/21 Gabapentin 600 mg PO TID 03/20/21 12/15/21 Lidocaine 5% Patch [Lidoderm 5% 1 patch TOPICAL Q24H 03/20/21 12/15/21 Patch] Multivitamins, Thera [Multivitamin 1 tab PO DAILY 03/20/21 12/15/21 (formulary)] [place]-3 Fatty Acids [[place]-3] 1,000 mg PO DAILY 03/20/21 12/15/21 Pantoprazole [Protonix] 40 mg PO BID 03/20/21 12/15/21 Glucosamine Sulfate 1,000 mg PO DAILY 12/15/21 12/15/21 Latanoprost/Pf [Latanoprost 0.005% 1 drop BOTH EYES HS 12/15/21 12/15/21 Eye Drop] amLODIPine [Norvasc] 10 mg PO DAILY 12/15/21 12/15/21 Previous Rx's Medication Instructions Recorded hydrALAZINE HCL [Apresoline] 75 mg PO TID #90 tab 12/16/21 Allergies Allergy/AdvReac Type Severity Reaction Status Date / Time tramadol [From Ultram] Allergy Rash/Hives Verified 12/15/21 11:01 allopurinol AdvReac Itching Verified 12/15/21 11:01 amitriptyline [From Elavil] AdvReac anxiety Verified 12/15/21 11:01 lovastatin AdvReac Abdominal Verified 12/15/21 11:01 Pain trazodone AdvReac nightmares Verified 12/15/21 11:01 Review of Systems ROS Statement: Those systems with pertinent positive or pertinent negative responses have been documented in the HPI. ROS Other: All systems not noted in ROS Statement are negative. Past Medical History Past Medical History: GERD/Reflux, Hypertension Additional Past Medical History / Comment(s): Gout, History of Any Multi-Drug Resistant Organisms: None Reported Past Surgical History: Appendectomy, Cholecystectomy, Tonsillectomy Additional Past Surgical History / Comment(s): Neck fusion Past Psychological History: No Psychological Hx Reported Smoking Status: Never smoker Past Alcohol Use History: None Reported Past Drug Use History: None Reported - Past Family History Father Family Medical History: Diabetes Mellitus Additional Family Medical History / Comment(s): Patient states "heart problems" Mother Additional Family Medical History / Comment(s): patient states "heart problems". Stroke Brother(s) Family Medical History: Diabetes Mellitus General Exam Limitations: no limitations General appearance: alert, in no apparent distress Head exam: Present: atraumatic, normocephalic, normal inspection Eye exam: Present: normal appearance, PERRL, EOMI. Absent: scleral icterus, conjunctival injection, periorbital swelling ENT exam: Present: normal exam, mucous membranes moist Neck exam: Present: normal inspection. Absent: tenderness, meningismus, lymphadenopathy Respiratory exam: Present: normal lung sounds bilaterally. Absent: respiratory distress, wheezes, rales, rhonchi, stridor Cardiovascular Exam: Present: bradycardia, irregular rhythm, normal heart sounds. Absent: systolic murmur, diastolic murmur, rubs, gallop, clicks GI/Abdominal exam: Present: soft, normal bowel sounds. Absent: distended, tenderness, guarding, rebound, rigid Extremities exam: Present: normal inspection, full ROM, normal capillary refill. Absent: tenderness, pedal edema, joint swelling, calf tenderness Back exam: Present: normal inspection Neurological exam: Present: alert, oriented X3, CN II-XII intact Psychiatric exam: Present: normal affect, normal mood Skin exam: Present: warm, dry, intact, normal color. Absent: rash Course Vital Signs 12/15/21 12/15/21 12/15/21 09:47 10:12 11:04 Temperature 97.7 F Pulse Rate 40 L 33 L 30 L Pulse Rate [ 33 L Ibm Websphere Portal Developer ] Respiratory 26 H 22 18 Rate Blood Pressure 193/96 168/70 146/66 O2 Sat by Pulse 97 94 L 98 Oximetry - Reevaluation(s) Reevaluation #1: Spoke with Dr. Beauchamp 12/15/21 10:10 Medical Decision Making - Medical Decision Making Upon arrival patient is placed into trauma 3. He is hooked up to continuous pulse ox and cardiac monitoring. 12-lead EKG was obtained which demonstrates that the patient is in a third-degree heart block. I immediately called and spoke with Dr. Beauchamp. IV is established laboratory studies were conducted. She is hemodynamically stable at this time. He will be admitted to sounds physicians. Dr. Beauchamp evaluates the patient in the ED and takes him immediately for pacemaker placement. - Lab Data Result diagrams: 12/16/21 11:41 12/16/21 08:06 Lab Results 12/15/21 12/15/21 12/15/21 Range/Units 10:16 10:16 10:16 WBC 8.5 (3.8-10.6) k/uL RBC 4.13 L (4.30-5.90) m/uL Hgb 12.9 L (13.0-17.5) gm/dL Hct 40.6 (39.0-53.0) % MCV 98.1 (80.0-100.0) fL MCH 31.2 (25.0-35.0) pg MCHC 31.8 (31.0-37.0) g/dL RDW 12.8 (11.5-15.5) % Plt Count 185 (150-450) k/uL MPV 10.5 Neutrophils % 61 % Lymphocytes % 27 % Monocytes % 6 % Eosinophils % 3 % Basophils % 1 % Neutrophils # 5.2 (1.3-7.7) k/uL Lymphocytes # 2.3 (1.0-4.8) k/uL Monocytes # 0.5 (0-1.0) k/uL Eosinophils # 0.3 (0-0.7) k/uL Basophils # 0.1 (0-0.2) k/uL Sodium 145 (137-145) mmol/L Potassium 4.8 (3.5-5.1) mmol/L Chloride 118 H (98-107) mmol/L Carbon Dioxide 15 L (22-30) mmol/L Anion Gap 12 mmol/L BUN 44 H (9-20) mg/dL Creatinine 2.00 H (0.66-1.25) mg/dL Est GFR (CKD-EPI)AfAm 34 (>60 ml/min/1.73 sqM) Est GFR (CKD-EPI)NonAf 30 (>60 ml/min/1.73 sqM) Glucose 90 (74-99) mg/dL Calcium 9.1 (8.4-10.2) mg/dL Magnesium 1.4 L (1.6-2.3) mg/dL Total Bilirubin 0.8 (0.2-1.3) mg/dL AST 32 (17-59) U/L ALT 26 (4-49) U/L Alkaline Phosphatase 50 (38-126) U/L Troponin I 0.020 (0.000-0.034) ng/mL NT-Pro-B Natriuret Pep pg/mL Total Protein 6.2 L (6.3-8.2) g/dL Albumin 4.0 (3.5-5.0) g/dL TSH (0.465-4.680) mIU/L 12/15/21 12/15/21 Range/Units 10:16 10:16 WBC (3.8-10.6) k/uL RBC (4.30-5.90) m/uL Hgb (13.0-17.5) gm/dL Hct (39.0-53.0) % MCV (80.0-100.0) fL MCH (25.0-35.0) pg MCHC (31.0-37.0) g/dL RDW (11.5-15.5) % Plt Count (150-450) k/uL MPV Neutrophils % % Lymphocytes % % Monocytes % % Eosinophils % % Basophils % % Neutrophils # (1.3-7.7) k/uL Lymphocytes # (1.0-4.8) k/uL Monocytes # (0-1.0) k/uL Eosinophils # (0-0.7) k/uL Basophils # (0-0.2) k/uL Sodium (137-145) mmol/L Potassium (3.5-5.1) mmol/L Chloride (98-107) mmol/L Carbon Dioxide (22-30) mmol/L Anion Gap mmol/L BUN (9-20) mg/dL Creatinine (0.66-1.25) mg/dL Est GFR (CKD-EPI)AfAm (>60 ml/min/1.73 sqM) Est GFR (CKD-EPI)NonAf (>60 ml/min/1.73 sqM) Glucose (74-99) mg/dL Calcium (8.4-10.2) mg/dL Magnesium (1.6-2.3) mg/dL Total Bilirubin (0.2-1.3) mg/dL AST (17-59) U/L ALT (4-49) U/L Alkaline Phosphatase (38-126) U/L Troponin I (0.000-0.034) ng/mL NT-Pro-B Natriuret Pep 1220 pg/mL Total Protein (6.3-8.2) g/dL Albumin (3.5-5.0) g/dL TSH 1.890 (0.465-4.680) mIU/L - EKG Data EKG Comments: EKG demonstrates a third-degree heart block with a rate of 34. QRS 127. QTC of 408. No acute ST segment elevations or depressions Critical Care Time Critical Care Time: Yes Critical Care Time: 35 minutes Disposition Clinical Impression: Third degree AV block, Bradycardia Disposition: ADMITTED IP TO THIS [facility] Condition: Stable Is patient prescribed a controlled substance at d/c from ED?: No Time of Disposition: 10:46 Decision to Admit Reason: Admit from EC Decision Date: 12/15/21 Decision Time: 10:46
[2021-12-15 10:32] LABS: Basophils # (A) 0.1 k/uL (0-0.2); Basophils % (A) 1 %; Eosinophils # (A) 0.3 k/uL (0-0.7); Eosinophils % (A) 3 %; HCT 40.6 % (39.0-53.0); HGB 12.9 gm/dL (13.0-17.5); Lymphocytes # (A) 2.3 k/uL (1.0-4.8); Lymphocytes % (A) 27 %; MCH 31.2 pg (25.0-35.0); MCHC 31.8 g/dL (31.0-37.0); MCV 98.1 fL (80.0-100.0); Mean Platelet Volume 10.5; Monocytes # (A) 0.5 k/uL (0-1.0); Monocytes % (A) 6 %; Neutrophils # (A) 5.2 k/uL (1.3-7.7); Neutrophils % (A) 61 %; Platelet Count 185 k/uL (150-450); RBC 4.13 m/uL (4.30-5.90); RDW 12.8 % (11.5-15.5); WBC 8.5 k/uL (3.8-10.6)
[2021-12-15] MEDS ORDERED: NALOXONE 0.4 MG/ML 1 ML VIAL IV PRN (10:46)
[2021-12-15 11:00] LABS: Calcium 9.1 mg/dL (8.4-10.2); Magnesium 1.4 mg/dL (1.6-2.3); Total Bilirubin 0.8 mg/dL (0.2-1.3); Total Protein 6.2 g/dL (6.3-8.2)
--- NOTE | 2021-12-15 11:07 | XR ---
EXAMINATION TYPE: XR chest 1V portable DATE OF EXAM: 12/15/2021 COMPARISON: Chest x-ray March 24, 2021 HISTORY: Increased difficulty in breathing TECHNIQUE: Single frontal view of the chest is obtained. FINDINGS: There is increased cardiac silhouette prominence with new bilateral increased opacities. No pleural effusion or pneumothorax seen bilaterally. The osseous structures are intact. IMPRESSION: Bilateral moderate edema and/or multifocal infiltrates. Correlate for CHF exacerbation w hich would be favored over atypical infection.
[2021-12-15 11:08] LABS: Potassium 4.8 mmol/L (3.5-5.1)
[2021-12-15] MEDS ORDERED: MAGNESIUM SULFATE-D5W PMX 1 GM in DEXTROSE/WATER 1 100ML.BAG IVPB ONE (11:10)
[2021-12-15] MEDS ORDERED: SODIUM CHLORIDE 0.9% 1,000 ML IV SCH ×2 (11:15)
[2021-12-15] MEDS ORDERED: IV FLUID CONTINUATION 950 ML IV ONE (11:48)
[2021-12-15 12:00] LABS: Partial Thromboplastin Time 21.3 sec (22.0-30.0); Prothrombin Time 10.5 sec (9.0-12.0)
[2021-12-15] MEDS ORDERED: LIDOCAINE 1% INJ 10MG/ML (30 ML VIAL-PF) SQ ONE ×3 (12:29→16:30)
--- NOTE | 2021-12-15 13:23 | PCN ---
PROCEDURE NOTE DATE OF SERVICE: 12/15/2021. PROCEDURE: Transvenous temporary pacemaker from right femoral venous approach. PERFORMED BY: Dr. Roderick Beauchamp. Moderate conscious sedation time was 13 minutes. The patient's oxygen saturation, hemodynamics and EKG were monitored closely. CLINICAL INFORMATION: Mr. Paras Conde is an 86-year-old gentleman who has healthcare at [facility] and sees Dr. Sánchez. He has hypertension, hyperlipidemia, came into the hospital with 5 days history of feeling weak, tired, exhausted, short of breath, was found to be in a heart rate of about 30 beats per minute with a complete heart block, narrow QRS. He is not on any rate lowering agents. He was advised a temporary pacemaker and also permanent pacemaker to be performed later in the day. He was brought in for the procedure after due discussion regarding risks, benefits and options. PROCEDURE NOTE: Under strict aseptic precautions and local anesthesia a 6-K[place] and was placed in the right femoral vein. A transvenous balloon-tipped pacemaker was advanced and positioned in the right ventricular apex. The threshold was 0.3 mV. The pacemaker was set at a backup rate of 40 and mA of 5.0. The patient's intrinsic heart rate is about 30, so he was being paced all the time. Procedure was performed uneventfully without any complication. Details were discussed with the patient and his daughter. I hope to perform permanent pacemaker later today or early tomorrow. CATHY / ROMANA: [id number] /
--- NOTE | 2021-12-15 13:32 | P.CRDCN ---
History of Present Illness History of present illness: - . HPI: [This is a 86-year-old gentleman who has most of his health care at [facility]. He has hypertension hyperlipidemia and he came in to the emergency room with a 4-5 days history of increasing shortness of breath and lack of energy we can fatigue. He takes lisinopril and hydrochlorothiazide. He was found to be in a complete heart block with a narrow QRS ventricular rate of abo ut 32 bpm and a atrial rate based on the P waves of about 70 bpm. He is not on any rate lowering agents. He has hypertension and hyperlipidemia, unexplained neuropathy. He also has gastroesophageal Dickler disease and hypertension. I saw him in the emergency room advised to temporary transvenous pacemaker and they also have permanent pacemaker if possible today or tomorrow and I took him to the cardiac labor supervisor after due discussion with the patient and his daughter.]. RELEVANT PAST MEDICAL HISTORY: [Benign hypertension, hypercholesterolemia, previous appendectomy cholecystectomy. No evidence of any hypothyroidism. He has not had any previous episodes of syncope and near syncope]. MEDICATIONS: [Lisinopril and hydrochlorothiazide and atorvastatin] ALLERGIES: []. REVIEW OF SYSTEMS: []. PHYSICIAL EXAM: [JVD of about 1 cm no carotid bruit S1 and S2 heard normally short systolic murmur at the base no significant gallops lungs reveal bilateral diminished air entry abdomen is distended bowel sounds are audible lower extremities reveal diminished pulses central nervous system grossly no focal deficits]. IMPRESSION: 1. [ Complete heart block with a narrow QRS and symptomatic with shortness of breath and near syncope]. 2. Benign hypertension. 3. Hypercholesterolemia. 4. []. 5. []. RECOMMENDATIONS: [Advised transvenous temporary pacemaker and also permanent pacemaker either later today or tomorrow if possible. Patient will have a temporary pacemaker today. Explained to the patient and daughter the rationale risks benefits and options. We will check thyroid function tests.]. Past Medical History Past Medical History: GERD/Reflux, Hypertension Additional Past Medical History / Comment(s): Gout, History of Any Multi-Drug Resistant Organisms: None Reported Past Surgical History: Appendectomy, Cholecystectomy, Tonsillectomy Additional Past Surgical History / Comment(s): Neck fusion Past Psychological History: No Psychological Hx Reported Smoking Status: Never smoker Past Alcohol Use History: None Reported Past Drug Use History: None Reported Medications and Allergies Home Medications Medication Instructions Recorded Confirmed Type Ascorbic Acid [Vitamin C] 500 mg PO DAILY 03/20/21 12/15/21 History Aspirin EC [Ecotrin Low Dose] 81 mg PO DAILY 03/20/21 12/15/21 History Atorvastatin [Lipitor] 80 mg PO HS 03/20/21 12/15/21 History Cyclobenzaprine [Flexeril] 10 mg PO BID PRN 03/20/21 12/15/21 History Docusate [Colace] 100 mg PO DAILY 03/20/21 12/15/21 History Febuxostat 40 mg PO DAILY 03/20/21 12/15/21 History Gabapentin 600 mg PO TID 03/20/21 12/15/21 History Lidocaine 5% Patch [Lidoderm 5% 1 patch TOPICAL Q24H 03/20/21 12/15/21 History Patch] Multivitamins, Thera [Multivitamin 1 tab PO DAILY 03/20/21 12/15/21 History (formulary)] [place]-3 Fatty Acids [[place]-3] 1,000 mg PO DAILY 03/20/21 12/15/21 History Pantoprazole [Protonix] 40 mg PO BID 03/20/21 12/15/21 History Spironolactone [Aldactone] 25 mg PO DAILY #30 tab 03/23/21 12/15/21 Rx Glucosamine Sulfate 1,000 mg PO DAILY 12/15/21 12/15/21 History Latanoprost/Pf [Latanoprost 0.005% 1 drop BOTH EYES HS 12/15/21 12/15/21 History Eye Drop] amLODIPine [Norvasc] 10 mg PO DAILY 12/15/21 12/15/21 History lisinopriL [Prinivil] 20 mg PO BID 12/15/21 12/15/21 History Allergies Allergy/AdvReac Type Severity Reaction Status Date / Time tramadol [From Ultram] Allergy Rash/Hives Verified 12/15/21 11:01 allopurinol AdvReac Itching Verified 12/15/21 11:01 amitriptyline [From Elavil] AdvReac anxiety Verified 12/15/21 11:01 lovastatin AdvReac Abdominal Verified 12/15/21 11:01 Pain trazodone AdvReac nightmares Verified 12/15/21 11:01 Physical Exam Vitals: Vital Signs Temp Pulse Pulse Resp BP BP Pulse Ox 12/15/21 13:27 40 L 172/75 12/15/21 13:05 40 L 16 98 12/15/21 11:44 29 L 22 162/63 96 12/15/21 11:04 30 L 18 146/66 98 12/15/21 10:12 33 L 33 L 22 168/70 94 L 12/15/21 09:47 97.7 F 40 L 26 H 193/96 97 Intake and Output 12/14/21 12/15/21 12/15/21 22:59 06:59 14:59 Intake Total 50 Balance 50 Intake: IV 50 Other: Weight 97.976 kg Results 12/15/21 10:16 12/15/21 10:16 Cardiac Enzymes 12/15/21 12/15/21 Range/Units 10:16 10:16 AST 32 (17-59) U/L Troponin I 0.020 (0.000-0.034) ng/mL Coagulation 12/15/21 Range/Units 11:21 PT 10.5 (9.0-12.0) sec APTT 21.3 L (22.0-30.0) sec CBC 12/15/21 Range/Units 10:16 WBC 8.5 (3.8-10.6) k/uL RBC 4.13 L (4.30-5.90) m/uL Hgb 12.9 L (13.0-17.5) gm/dL Hct 40.6 (39.0-53.0) % Plt Count 185 (150-450) k/uL Comprehensive Metabolic Panel 12/15/21 Range/Units 10:16 Sodium 145 (137-145) mmol/L Potassium 4.8 (3.5-5.1) mmol/L Chloride 118 H (98-107) mmol/L Carbon Dioxide 15 L (22-30) mmol/L BUN 44 H (9-20) mg/dL Creatinine 2.00 H (0.66-1.25) mg/dL Glucose 90 (74-99) mg/dL Calcium 9.1 (8.4-10.2) mg/dL AST 32 (17-59) U/L ALT 26 (4-49) U/L Alkaline Phosphatase 50 (38-126) U/L Total Protein 6.2 L (6.3-8.2) g/dL Albumin 4.0 (3.5-5.0) g/dL Current Medications Generic Name Dose Route Start Last Admin Trade Name Freq PRN Reason Stop Dose Admin Sodium Chloride 1,000 mls @ 50 mls/hr 12/15/21 11:15 Saline 0.9% IV .Q20H YESSY Sodium Chloride 1,000 mls @ 50 mls/hr 12/15/21 11:15 Saline 0.9% IV .Q20H YESSY Cefazolin Sodium 2 gm/ Sodium 50 mls @ 100 mls/hr 12/15/21 07:00 Chloride IVPB 12/15/21 23:00 ONCE PRN Pre-Op Cefazolin Sodium 1 gm/ Sodium 250 mls @ 250 mls/hr 12/15/21 07:00 Chloride IRRIGATION 12/15/21 23:00 ONCE PRN PRE-OP Naloxone HCl 0.2 mg 12/15/21 10:46 Naloxone 0.4 Mg/Ml 1 Ml Vial IV Q2M PRN Opioid Reversal Intake and Output 12/14/21 12/15/21 12/15/21 22:59 06:59 14:59 Intake Total 50 Balance 50 Intake: IV 50 Other: Weight 97.976 kg Patient Weight 12/16/21 06:59 Weight 97.976 kg 12/15/21 10:16 12/15/21 10:16
[2021-12-15 13:56] LABS: Glucose,Whole Blood 84 mg/dL (75-99)
[2021-12-15] MEDS ORDERED: IV FLUID CONTINUATION 1,000 ML IV ONE (15:48)
[2021-12-15] MEDS ORDERED: PROPOFOL 10 MG/ML 20 ML VIAL IV ONE (15:48)
[2021-12-15] MEDS ORDERED: fentaNYL (PF) 50 MCG/ML 2 ML AMP ONE (15:48)
[2021-12-15] MEDS ORDERED: MIDAZOLAM 2 MG/2 ML VIAL ONE (15:48)
[2021-12-15] MEDS ORDERED: IOPAMIDOL-370 50ML BTL INJ ONE (16:11)
[2021-12-15] MEDS ORDERED: ACETAMINOPHEN IV (For NPO) 1,000 MG in EMPTY BAG 1 BAG IVPB ONE (18:37)
--- NOTE | 2021-12-15 18:43 | P.EPPROC ---
- EP Procedure Note Electrophysiology Procedure Note: Diagnosis Third degree heart block with bradycardia With [place] pacing, patient went into complete heart block Pacemaker dependency Procedure LV/ biventricular pacemaker implantation Details Patient was brought to the EP lab in a fasting state. Written informed consent was obtained prior to the procedure. Conscious sedation provided by anesthesia team IV antibiotics administered. Local anesthesia administered. A 4 cm incision made in the pectoral area. Subfascial pocket made. Venous access obtained Venous sheaths placed. Leads placed in the right heart Atrial lead position the right atrial appendage. Medtronic lead 52 cm model #5076 P waves 1.5 mils pacing impedance 418 ohms pacing threshold 0.5 V at 0.4 ms RV lead position in the RV apex. Medtronic 58 cm lead model #5076 Pacing impedance 665 ohms, pacing threshold 0.5 V at 0.4 ms Left bundle mapping and pacing Successful placement of the 30th 30 Medtronic lead in the left bundle Pacing threshold 0.5 V at 0.4 ms pacing impedance 532 ohms Qr pattern in lead V1 Stim to V6 93-95 ms in lead V6 Discordant aVR and aVL Leads secured Biventricular pacemaker device connected to the leads and placed in the subfascial pocket tyrx pouch placed Patient tolerance the procedure well without acute complications TVP was removed under fluoroscopy pacemaker leads stable in position
--- NOTE | 2021-12-15 18:45 | P.PRLE ---
RE: Paras Conde Dear Dr. Claudia Crain presented to the hospital with complete heart block He underwent a biventricular pacemaker with implantation of a left bundle pacing lead (conduction system pacing via the left bundle) This avoids RV pacing and provides intra-ventricular electromechanical synchrony Thank you for entrusting me with the care of the patient Warm regards Sincerely Gatito Agrawal
[2021-12-15] MEDS ORDERED: LATANOPROST 0.005% OPHTH DROPS 2.5 ML BTL BOTH EYES SCH (21:00)
--- NOTE | 2021-12-15 21:52 | P.HPIM ---
History of Present Illness H&P Date: 12/15/21 Chief Complaint: SOB 86 year old male with hypertension , hyperlipidemia patient comes in with complaints progressive exertional dyspnea over the past 4 days, denies any coughing, wheezing, fever, chills, chest pain. however, he noticed significant new exercise intolerance and fatigue he denies any recent travel, or history of clots or heart disease, denies any chest pain abd pain, nausea vomiting , changes in bowel or urinary habits. upon arrival to the ED, he was found to have complete heart block with heart rate in the 30s and near syncope symptoms . he was evaluated by cardiology , who has placed a permanent pace maker, patient tolerated procedure well and has no concerns at this time blood work also showed AMAN and low Mg Review of Systems Pertinent positives as noted in HPI. All other systems were reviewed and are neg ative Past Medical History Past Medical History: GERD/Reflux, Hypertension Additional Past Medical History / Comment(s): Gout, third degree heart block History of Any Multi-Drug Resistant Organisms: None Reported Past Surgical History: Appendectomy, Cholecystectomy, Tonsillectomy Additional Past Surgical History / Comment(s): Neck fusion Past Psychological History: No Psychological Hx Reported Smoking Status: Never smoker Past Alcohol Use History: None Reported Past Drug Use History: None Reported - Past Family History Father Family Medical History: Diabetes Mellitus Additional Family Medical History / Comment(s): Patient states "heart problems" Mother Additional Family Medical History / Comment(s): patient states "heart problems". Stroke Brother(s) Family Medical History: Diabetes Mellitus Medications and Allergies Home Medications Medication Instructions Recorded Confirmed Type Ascorbic Acid [Vitamin C] 500 mg PO DAILY 03/20/21 12/15/21 History Aspirin EC [Ecotrin Low Dose] 81 mg PO DAILY 03/20/21 12/15/21 History Atorvastatin [Lipitor] 80 mg PO HS 03/20/21 12/15/21 History Cyclobenzaprine [Flexeril] 10 mg PO BID PRN 03/20/21 12/15/21 History Docusate [Colace] 100 mg PO DAILY 03/20/21 12/15/21 History Febuxostat 40 mg PO DAILY 03/20/21 12/15/21 History Gabapentin 600 mg PO TID 03/20/21 12/15/21 History Lidocaine 5% Patch [Lidoderm 5% 1 patch TOPICAL Q24H 03/20/21 12/15/21 History Patch] Multivitamins, Thera [Multivitamin 1 tab PO DAILY 03/20/21 12/15/21 History (formulary)] [place]-3 Fatty Acids [[place]-3] 1,000 mg PO DAILY 03/20/21 12/15/21 History Pantoprazole [Protonix] 40 mg PO BID 03/20/21 12/15/21 History Spironolactone [Aldactone] 25 mg PO DAILY #30 tab 03/23/21 12/15/21 Rx Glucosamine Sulfate 1,000 mg PO DAILY 12/15/21 12/15/21 History Latanoprost/Pf [Latanoprost 0.005% 1 drop BOTH EYES HS 12/15/21 12/15/21 History Eye Drop] amLODIPine [Norvasc] 10 mg PO DAILY 12/15/21 12/15/21 History lisinopriL [Prinivil] 20 mg PO BID 12/15/21 12/15/21 History Allergies Allergy/AdvReac Type Severity Reaction Status Date / Time tramadol [From Ultram] Allergy Rash/Hives Verified 12/15/21 11:01 allopurinol AdvReac Itching Verified 12/15/21 11:01 amitriptyline [From Elavil] AdvReac anxiety Verified 12/15/21 11:01 lovastatin AdvReac Abdominal Verified 12/15/21 11:01 Pain trazodone AdvReac nightmares Verified 12/15/21 11:01 Physical Exam Vitals: Vital Signs Temp Pulse Pulse Resp BP BP Pulse Ox 12/15/21 19:00 59 L 14 152/74 91 L 12/15/21 15:30 40 L 0 L 146/66 96 12/15/21 15:20 39 L 2 L 146/66 96 12/15/21 15:10 40 L 6 L 146/66 97 12/15/21 15:00 40 L 0 L 149/67 98 12/15/21 14:50 40 L 9 L 149/67 96 12/15/21 14:40 40 L 21 149/67 98 12/15/21 14:30 40 L 4 L 149/67 97 12/15/21 14:20 40 L 13 149/67 95 12/15/21 14:10 40 L 14 149/67 96 12/15/21 14:00 97.5 F L 40 L 14 156/68 96 12/15/21 13:51 94 L 12/15/21 13:27 40 L 172/75 12/15/21 13:05 40 L 16 98 12/15/21 11:44 29 L 22 162/63 96 12/15/21 11:04 30 L 18 146/66 98 12/15/21 10:12 33 L 33 L 22 168/70 94 L 12/15/21 09:47 97.7 F 40 L 26 H 193/96 97 Intake and Output 12/15/21 12/15/21 12/15/21 06:59 14:59 22:59 Intake Total 50 750 Output Total 650 300 Balance -600 450 Intake: IV 50 750 Sodium Chloride 0.9% 1, 100 000 ml @ 50 mls/hr IV . Q20H YESSY Rx#:[id number] Output: Urine 650 300 Other: Voiding Method Urinal # Voids 0 Weight 97.976 kg Constitutional: No acute distress, conversant, pleasant Eyes: Anicteric sclerae, moist conjunctiva, Pupils equal round reactive to light ENMT: NC/AT Oropharynx clear, no erythema, or exudates Neck: Supple, no masses, or JVD No carotid bruits No thyromegaly Lungs: Clear to auscultation Clear to percussion Normal respiratory effort, no accessory muscle use Cardiovascular: Heart regular in rate and rhythm, No murmurs, gallops, or rubs No peripheral edema Abdominal: Soft Nontender, no guarding, rebound or rigidity Abdomen moving with respiration Normoactive bowel sounds No hepatomegaly, No splenomegaly No palpable mass No abdominal wall hernia noted Skin: Normal temperature, tone, texture, turgor No induration No subcutaneous nodules No rash, lesions No ulcers Extremities: No digital cyanosis No clubbing Pedal pulses intact and symmetrical Radial pulses intact and symmetrical No calf tenderness Psychiatric: Alert and oriented to person, place and time Appropriate affect fair judgement Neuro Muscles Strength 4/5 in all 4 extremities Sensation to light touch grossly present throughout Cranial nerves II-XII grossly intact No focal sensory deficits Lymphatics: no palpable cervical or supraclavicular , or inguinal lymph nodes Results CBC & Chem 7: 12/15/21 10:16 12/15/21 10:16 Labs: Abnormal Lab Results - Last 24 Hours (Table) 12/15/21 12/15/21 12/15/21 Range/Units 10:16 10:16 11:21 RBC 4.13 L (4.30-5.90) m/uL Hgb 12.9 L (13.0-17.5) gm/dL APTT 21.3 L (22.0-30.0) sec Chloride 118 H (98-107) mmol/L Carbon Dioxide 15 L (22-30) mmol/L BUN 44 H (9-20) mg/dL Creatinine 2.00 H (0.66-1.25) mg/dL Magnesium 1.4 L (1.6-2.3) mg/dL Total Protein 6.2 L (6.3-8.2) g/dL Thrombosis Risk Factor Assmnt - Choose All That Apply Each Factor Represents 1 point: Obesity (BMI >25) Other Risk Factors: No Other congenital or acquired thrombophilia - If yes, enter type in comment: No Thrombosis Risk Factor Assessment Total Risk Factor Score: 1 Thrombosis Risk Factor Assessment Level: Low Risk Assessment and Plan Assessment: complete heart block s/p permanent pace maker POD zero follow up cardiology recs pain control compliance monitor ICU care AMAN avoid nephrotoxic meds hold ACEI and HCTZ monitor urine output monitor renal function hypomagnesemia replace and follow up levels chronic conditions hypertension hyperlipidemia full code DVT PPX heparin sc tid anticipated length of stay < 2 midnights
[2021-12-15] MEDS ORDERED: ATORVASTATIN 80 MG TAB PO SCH (22:00)
[2021-12-15] MEDS: GABAPENTIN 300 MG CAP PO SCH (23:36)
[2021-12-15] MEDS ORDERED: ACETAMINOPHEN TAB 325 MG TAB PO PRN (23:59)
--- NOTE | 2021-12-16 06:58 | XR ---
EXAMINATION TYPE: XR chest 1V portable DATE OF EXAM: 12/16/2021 COMPARISON: Yesterday HISTORY: Check lead placement TECHNIQUE: Single view FINDINGS: There is left axillary pacemaker. There are leads overlying the right ventricle. There is a lso a lead overlying the right atrium. There is no heart failure. There is some mild atelectasis at t he left lung base. Heart size is normal. Mediastinum appears normal. IMPRESSION: There is some mild atelectasis left lung base. There is significant clearing of the pulmo nary edema compared to exam yesterday.
[2021-12-16] MEDS ORDERED: PANTOPRAZOLE 40 MG TABLET PO SCH (07:30)
[2021-12-16 08:37] LABS: Calcium 8.8 mg/dL (8.4-10.2)
[2021-12-16 08:47] LABS: Magnesium 1.6 mg/dL (1.6-2.3)
[2021-12-16] MEDS ORDERED: hydrALAZINE HCL 50 MG TAB PO SCH (09:00)
[2021-12-16] MEDS ORDERED: amLODIPine 10 MG TAB PO SCH (09:00)
[2021-12-16] MEDS ORDERED: ASPIRIN 81 MG PO SCH (09:00)
[2021-12-16] MEDS: GABAPENTIN 300 MG CAP PO SCH (09:28)
--- NOTE | 2021-12-16 09:39 | US ---
EXAMINATION TYPE: US kidneys/renal and bladder DATE OF EXAM: 12/16/2021 COMPARISON: NONE CLINICAL HISTORY: AMAN. AMAN EXAM MEASUREMENTS: Right Kidney: 11.3 x 5.7 x 5.6 cm Left Kidney: 12.5 x 5.4 x 5.6 cm Right Kidney: Hypoechoic area seen laterally: 1.9 x 1.6 x 1.6 cm. Cortex appears thin. This appears to be a cyst. The h[place] are not entirely smooth and monitoring is recommended. Left Kidney: Appears slightly enlarged. Cortex appears thin. Hyperechoic focus with posterior shado wing and twinkle artifact seen mid-lower pole: 0.6 x 0.8 x 0.6 cm. Findings could be compatible and n onobstructing renal stone. Bladder: Appears anechoic Bilateral Jets seen: Yes IMPRESSION: 1. Nonobstructing left renal stone. 2. Cyst on the right kidney. Monitoring is recommended.
[2021-12-16 10:37] VITALS: TEMP 97.8
--- NOTE | 2021-12-16 12:02 | PN ---
PROGRESS NOTE This gentleman came with a complete heart block. I performed temporary pacemaker yesterday. Dr. Agrawal did a dual-chamber permanent pacemaker with an LV lead as well. Pacemaker has been checked and is functioning well. Site is clean and dry. Patient is doing well. Plan is to increase activity and possible discharge. He will see Dr. Sánchez in the office in one week. Advised to continue current medical regimen. Vitals are stable. No JVD. S1-S2 heard normally. Short systolic murmur noted. Lungs reveal improved air entry. Abdomen and lower extremity exam unchanged. Pacemaker site is clean and dry. Device has been checked and is functioning well. Chest x-ray reveals no complication related to the pacemaker. MMODL / IJN: [id number] /
--- NOTE | 2021-12-16 12:26 | P.DS ---
Providers Date of admission: 12/15/21 10:46 Expected date of discharge: 12/16/21 Attending physician: Esperanza Robertson DO Consults: 12/15/21 10:46 Consult Physician Routine Consulting Provider: Lorena Beauchamp Consult Reason/Comments: third degree heart block Do you want consulting provider notified?: Already Contacted Primary care physician: [facility] Course: 86 year old male with hypertension , hyperlipidemia patient comes in with complaints progressive exertional dyspnea over the past 4 days, denies any coughing, wheezing, fever, chills, chest pain. however, he noticed significant new exercise intolerance and fatigue he denies any recent travel, or history of clots or heart disease, denies any chest pain abd pain, nausea vomiting , changes in bowel or urinary habits. upon arrival to the ED, he was found to have complete heart block with heart rate in the 30s and near syncope symptoms . he was evaluated by cardiology , who has placed a permanent pace maker, patient tolerated procedure well and has no concerns at this time blood work also showed AMAN and low Mg. Detailed the problem list: #Complete heart block status post permanent pacemaker postoperative day #1 -Patient was seen by cardiology today and he was cleared for discharge home #Acute kidney injury -Could be secondary to above -Renal ultrasound showed nonobstructing kidney stone and the right kidney cyst -Creatinine is trending down -Continue holding FABIOLA inhibitor and spironolactone on discharge #Uncontrolled Hypertension -Hydralazine 75 mg 3 times a day added on discharge -Resume Norvasc 10 mg daily -Continue holding FABIOLA inhibitor and spironolactone due to acute kidney injury #Dyslipidemia -Resume statins Physical examination on discharge: General: non toxic, no distress, appears at stated age Derm: warm, dry Head: atraumatic, normocephalic, symmetric Eyes: EOMI, no lid lag, anicteric sclera Mouth: no lip lesion, mucus membranes moist Cardiovascular: S1S2 reg, no murmur, positive posterior tibial pulse bilateral, Lungs: CTA bilateral, no rhonchi, no rales , no accessory muscle use Abdominal: soft, nontender to palpation, no guarding, no appreciable organomegaly Ext: no gross muscle atrophy, no edema, no contractures Neuro: CN II-XI grossly intact, no focal neuro deficits Psych: Alert, oriented, appropriate affect Patient Condition at Discharge: Stable Plan - Discharge Summary Discharge Rx Participant: Yes New Discharge Prescriptions: New hydrALAZINE HCL [Apresoline] 75 mg PO TID #90 tab Continue Pantoprazole [Protonix] 40 mg PO BID Multivitamins, Thera [Multivitamin (formulary)] 1 tab PO DAILY Gabapentin 600 mg PO TID Cyclobenzaprine [Flexeril] 10 mg PO BID PRN PRN Reason: Muscle Spasm Ascorbic Acid [Vitamin C] 500 mg PO DAILY [place]-3 Fatty Acids [[place]-3] 1,000 mg PO DAILY Glucosamine Sulfate 1,000 mg PO DAILY Latanoprost/Pf [Latanoprost 0.005% Eye Drop] 1 drop BOTH EYES HS Lidocaine 5% Patch [Lidoderm 5% Patch] 1 patch TOPICAL Q24H Febuxostat 40 mg PO DAILY Docusate [Colace] 100 mg PO DAILY Atorvastatin [Lipitor] 80 mg PO HS Aspirin EC [Ecotrin Low Dose] 81 mg PO DAILY amLODIPine [Norvasc] 10 mg PO DAILY Discontinued Spironolactone [Aldactone] 25 mg PO DAILY #30 tab lisinopriL [Prinivil] 20 mg PO BID Discharge Medication List Ascorbic Acid [Vitamin C] 500 mg PO DAILY 03/20/21 [History] Aspirin EC [Ecotrin Low Dose] 81 mg PO DAILY 03/20/21 [History] Atorvastatin [Lipitor] 80 mg PO HS 03/20/21 [History] Cyclobenzaprine [Flexeril] 10 mg PO BID PRN 03/20/21 [History] Docusate [Colace] 100 mg PO DAILY 03/20/21 [History] Febuxostat 40 mg PO DAILY 03/20/21 [History] Gabapentin 600 mg PO TID 03/20/21 [History] Lidocaine 5% Patch [Lidoderm 5% Patch] 1 patch TOPICAL Q24H 03/20/21 [History] Multivitamins, Thera [Multivitamin (formulary)] 1 tab PO DAILY 03/20/21 [History] [place]-3 Fatty Acids [[place]-3] 1,000 mg PO DAILY 03/20/21 [History] Pantoprazole [Protonix] 40 mg PO BID 03/20/21 [History] Glucosamine Sulfate 1,000 mg PO DAILY 12/15/21 [History] Latanoprost/Pf [Latanoprost 0.005% Eye Drop] 1 drop BOTH EYES HS 12/15/21 [History] amLODIPine [Norvasc] 10 mg PO DAILY 12/15/21 [History] hydrALAZINE HCL [Apresoline] 75 mg PO TID #90 tab 12/16/21 [Rx] Follow up Appointment(s)/Referral(s): Jimmie Sánchez MD [STAFF PHYSICIAN] - 1 Week (Office will call with 1 week device check appointment and a January followup appointment with Dr Sánchez.) [facility], [NON-STAFF] - 1-2 Days (homecare will call you within 24 hours to set up care.) [facility] [Primary Care Provider] - 12/17/21 3:30 pm () Patient Instructions/Handouts: Pacemaker (DC) Activity/Diet/Wound Care/Special Instructions: wear sling 07/02 only to remove when showering. keep wearing it until you see dr sánchez. may shower tomorrow. keep bandage on chest. do not let water run directly on that incision area. Discharge Disposition: HOME SELF-CARE
[2021-12-16 12:42] LABS: Basophils % (A) 0 %; Eosinophils # (A) 0.2 k/uL (0-0.7); Eosinophils % (A) 2 %; HCT 38.4 % (39.0-53.0); HGB 12.7 gm/dL (13.0-17.5); Lymphocytes # (A) 1.2 k/uL (1.0-4.8); Lymphocytes % (A) 13 %; MCH 31.7 pg (25.0-35.0); MCV 95.9 fL (80.0-100.0); Mean Platelet Volume 9.9; Monocytes # (A) 0.7 k/uL (0-1.0); Monocytes % (A) 8 %; Neutrophils # (A) 6.9 k/uL (1.3-7.7); Neutrophils % (A) 77 %; Platelet Count 146 k/uL (150-450); RDW 12.7 % (11.5-15.5); WBC 9.1 k/uL (3.8-10.6)
[2021-12-16 13:35] VITALS: BP 161/69; PULSE 60; RESP 23
[2021-12-16] MEDS ORDERED: hydrALAZINE HCL 25 MG TAB PO SCH (16:00)
== END 2021-12-16 13:40 | disposition home or self-care (01) | DRG 243 ==
LOC: EC 09:46 → 2SICU 10:46
PROVIDERS: ADMIT Internal Medicine; ATTEND Internal Medicine
PROC: 02HK3JZ Insertion of Pacemaker Lead into Right Ventricle, Percutaneous Approach (ICD-10-PCS; 2021-12-15)
PROC: 02HK3JZ Insertion of Pacemaker Lead into Right Ventricle, Percutaneous Approach (ICD-10-PCS; 2021-12-15)
PROC: 3E0102A Introduction of Anti-Infective Envelope into Subcutaneous Tissue, Open Approach (ICD-10-PCS; 2021-12-15)
PROC: 5A1223Z Performance of Cardiac Pacing, Continuous (ICD-10-PCS; 2021-12-15)
PROC: 0JH607Z Insertion of Cardiac Resynchronization Pacemaker Pulse Generator into Chest Subcutaneous Tissue and Fascia, Open Approach (ICD-10-PCS; principal; 2021-12-15 12:05)
PROC: 02H63JZ Insertion of Pacemaker Lead into Right Atrium, Percutaneous Approach (ICD-10-PCS; 2021-12-15 19:10)
DX: I44.2 Atrioventricular block, complete (principal); N17.9 Acute kidney failure, unspecified; R00.1 Bradycardia, unspecified; E78.00 Pure hypercholesterolemia, unspecified; E78.5 Hyperlipidemia, unspecified; E83.42 Hypomagnesemia; I10 Essential (primary) hypertension; G62.9 Polyneuropathy, unspecified; N20.0 Calculus of kidney; M10.9 Gout, unspecified; N28.1 Cyst of kidney, acquired; Z88.5 Allergy status to narcotic agent; Z88.8 Allergy status to other drugs, medicaments and biological substances; Z79.82 Long term (current) use of aspirin; Z79.899 Other long term (current) drug therapy; Z98.1 Arthrodesis status; Z95.0 Presence of cardiac pacemaker; Z90.49 Acquired absence of other specified parts of digestive tract; Z82.3 Family history of stroke; Z83.3 Family history of diabetes mellitus; Z82.49 Family history of ischemic heart disease and other diseases of the circulatory system
CPT/HCPCS: 33208; 33210; 33225; 36415; 71045; 76770; 80048; 80053; 83735; 83880; 84443; 84484; 85025; 85610; 85730; 93005; 99291

== ENCOUNTER 2022-12-03 21:38 | Emergency (ER) | payer OTHER, MEDICARE ==
[2022-12-03 21:44] VITALS: RESP 20; TEMP 97.9
--- NOTE | 2022-12-03 23:50 | CT ---
EXAMINATION TYPE: CT brain cspine wo con CT DLP: 1588.2 mGycm, Automated exposure control for dose reduction was used. DATE OF EXAM: 12/03/2022 11:25 PM COMPARISON: None CLINICAL INDICATION:Male, 87 years old with history of neuropathy face and hands; Bilateral hand ting ling and top of head x 2 weeks. No trauma TECHNIQUE: Brain: Multiple axial CT images of the brain were obtained without IV contrast. Cspine: Axial CT images from the skull base to the inferior aspect of T2 we obtained without intraven ous contrast. Coronal and sagittal reformatted images were also reviewed. FINDINGS: Brain: Extra-axial spaces: No abnormal extra-axial fluid collections. Ventricular system: Dilatation in proportion to cerebral atrophy. Cerebral parenchyma: Mineralization of the basal ganglia Cerebral atrophy. No acute intraparenchymal hemorrhage or mass effect. The gonsalez-white junction is well differentiated. Scattered hypoattenuating areas are seen within the white matter. Cerebellum: Unremarkable. Mass effect: No evidence of midline shift. Intracranial vasculature: Atherosclerotic calcifications of the intracranial vessels. Soft tissues: Normal. Calvarium/osseous structures: No depressed skull fracture. Paranasal sinuses and mastoid air cells: Mild scattered mucosal thickening and or secretions. Visualized orbits: Bilateral aphakia Cervical spine: Fracture: None. Osseous structures: Multilevel degenerative disc disease changes with endplate spurring and disc oste ophyte complex's. Vertebral alignment: Straightening of the cervical spine. Spinal canal/Neural Foramina: Disc osteophyte complexes at C5-C6 and C6-C7 with at least mild spinal canal stenosis. Facet joint uncovertebral joint arthropathy scattered throughout the cervical spine w ith varying degrees of neural foraminal stenosis. Neck soft tissues: Prevertebral soft tissues are within normal limits. Other: The airway is patent. The lung apices are clear. Calcification of the nuchal ligament. Atheros clerosis of the carotid bifurcations. IMPRESSION: 1. No acute intracranial process. 2. Generalized cerebral atrophy changes. 3. Nonspecific white matter changes, likely secondary to chronic small vessel ischemic disease. 4. No evidence of cervical spine fracture. 5. Mild to moderate multilevel degenerative disc disease.
--- NOTE | 2022-12-03 23:51 | XR ---
EXAMINATION TYPE: XR chest 2V DATE OF EXAM: 12/03/2022 11:26 PM COMPARISON: Chest radiographs from 12/16/2021 TECHNIQUE: XR chest 2V Frontal and lateral views of the chest. CLINICAL INDICATION:Male, 87 years old with history of altered mental status; FINDINGS: Lungs/Pleura: There is no evidence of pleural effusion, focal consolidation, or pneumothorax. Pulmonary vascularity: Unremarkable. Heart/mediastinum: Cardiomediastinal silhouette is unremarkable. Atherosclerotic calcifications are seen in the aorta. Three lead cardiac conduction device overlying the left hemithorax with lead tips projecting over the right ventricle, right atrium and coronary sinus. Musculoskeletal: No acute osseous pathology. IMPRESSION: 1. No acute cardiopulmonary disease process. 2. COPD changes.
[2022-12-04 00:18] LABS: Basophils % (A) 0 %; Eosinophils # (A) 0.2 k/uL (0-0.7); Eosinophils % (A) 2 %; HCT 42.1 % (39.0-53.0); HGB 14.6 gm/dL (13.0-17.5); Lymphocytes # (A) 2.3 k/uL (1.0-4.8); Lymphocytes % (A) 26 %; MCH 31.9 pg (25.0-35.0); MCHC 34.8 g/dL (31.0-37.0); MCV 91.8 fL (80.0-100.0); Mean Platelet Volume 8.3; Monocytes # (A) 0.6 k/uL (0-1.0); Monocytes % (A) 7 %; Neutrophils # (A) 5.5 k/uL (1.3-7.7); Neutrophils % (A) 63 %; Platelet Count 195 k/uL (150-450); RBC 4.59 m/uL (4.30-5.90); RDW 12.9 % (11.5-15.5); WBC 8.7 k/uL (3.8-10.6)
[2022-12-04 00:27] LABS: Albumin 3.7 g/dL (3.5-5.0); Calcium 9.2 mg/dL (8.4-10.2); Potassium 3.6 mmol/L (3.5-5.1); Total Bilirubin 0.4 mg/dL (0.2-1.3); Total Protein 5.9 g/dL (6.3-8.2)
[2022-12-04 00:31] LABS: INR 0.9 (<1.2); Partial Thromboplastin Time 23.9 sec (22.0-30.0); Prothrombin Time 9.7 sec (9.0-12.0)
--- NOTE | 2022-12-04 00:40 | ED ---
Neuro HPI - General Chief Complaint: Neuro Symptoms/Deficit Stated Complaint: Tingling feeling through left arm, fingers, head Time Seen by Provider: 12/03/22 21:40 Source: patient, family Mode of arrival: ambulatory Limitations: physical limitation - History of Present Illness Is the patient presenting with stroke symptoms?: No Initial Comments: 87-year-old male with past nuchal history of sick sinus syndrome who presents to the emergency department reporting hand numbness. States that for the past 2 weeks he has had numbness to his bilateral hands. States that it will wax and wane in nature. He denies any provocative factors. Has not been taking any medications for the symptoms. Paresthesias only effect the hands. Denies any decreased outpatient clerk strength. Today the patient was having some numbness in the top of his head is is what prompted him to come to the emergency department. Denies history of stroke. Denies any numbness, tingly or weakness in his legs. No visual changes. No speech deficits. Denies any head trauma. Does admit to some neck pain. No other alleviating, precipitating or modifying factors - Related Data Home Medications: Home Medications Medication Instructions Recorded Confirmed Ascorbic Acid [Vitamin C] 500 mg PO DAILY 03/20/21 12/15/21 Aspirin EC [Ecotrin Low Dose] 81 mg PO DAILY 03/20/21 12/15/21 Atorvastatin [Lipitor] 80 mg PO HS 03/20/21 12/15/21 Cyclobenzaprine [Flexeril] 10 mg PO BID PRN 03/20/21 12/15/21 Docusate [Colace] 100 mg PO DAILY 03/20/21 12/15/21 Febuxostat 40 mg PO DAILY 03/20/21 12/15/21 Gabapentin 600 mg PO TID 03/20/21 12/15/21 Lidocaine 5% Patch [Lidoderm 5% 1 patch TOPICAL Q24H 03/20/21 12/15/21 Patch] Multivitamins, Thera [Multivitamin 1 tab PO DAILY 03/20/21 12/15/21 (formulary)] Hamilton-3 Fatty Acids [Hamilton-3] 1,000 mg PO DAILY 03/20/21 12/15/21 Pantoprazole [Protonix] 40 mg PO BID 03/20/21 12/15/21 Glucosamine Sulfate 1,000 mg PO DAILY 12/15/21 12/15/21 Latanoprost/Pf [Latanoprost 0.005% 1 drop BOTH EYES HS 12/15/21 12/15/21 Eye Drop] amLODIPine [Norvasc] 10 mg PO DAILY 12/15/21 12/15/21 Previous Rx's Medication Instructions Recorded hydrALAZINE HCL [Apresoline] 75 mg PO TID #90 tab 12/16/21 Allergies/Adverse Reactions: Allergies Allergy/AdvReac Type Severity Reaction Status Date / Time tramadol [From Ultram] Allergy Rash/Hives Verified 12/03/22 21:44 allopurinol AdvReac Itching Verified 12/03/22 21:44 amitriptyline [From Elavil] AdvReac anxiety Verified 12/03/22 21:44 lovastatin AdvReac Abdominal Verified 12/03/22 21:44 Pain trazodone AdvReac nightmares Verified 12/03/22 21:44 Review of Systems ROS Statement: Those systems with pertinent positive or pertinent negative responses have been documented in the HPI. ROS Other: All systems not noted in ROS Statement are negative. General Exam Limitations: physical limitation General appearance: alert, in no apparent distress Head exam: Present: atraumatic, normocephalic, normal inspection Eye exam: Present: normal appearance, PERRL, EOMI. Absent: scleral icterus, conjunctival injection, periorbital swelling ENT exam: Present: normal exam, mucous membranes moist Neck exam: Present: normal inspection. Absent: tenderness, meningismus, lymphadenopathy Respiratory exam: Present: normal lung sounds bilaterally. Absent: respiratory distress, wheezes, rales, rhonchi, stridor Cardiovascular Exam: Present: regular rate, normal rhythm, normal heart sounds. Absent: systolic murmur, diastolic murmur, rubs, gallop, clicks GI/Abdominal exam: Present: soft, normal bowel sounds. Absent: distended, tenderness, guarding, rebound, rigid Extremities exam: Present: normal inspection, full ROM, normal capillary refill. Absent: tenderness, pedal edema, joint swelling, calf tenderness Back exam: Present: normal inspection Neurological exam: Present: alert, oriented X3, CN II-XII intact Psychiatric exam: Present: normal affect, normal mood Skin exam: Present: warm, dry, intact, normal color. Absent: rash Stroke MDM - Lab Data Result diagrams: 12/04/22 00:01 12/04/22 00:01 Lab Results 12/04/22 12/04/22 12/04/22 Range/Units 00:01 00:01 00:01 WBC 8.7 (3.8-10.6) k/uL RBC 4.59 (4.30-5.90) m/uL Hgb 14.6 (13.0-17.5) gm/dL Hct 42.1 (39.0-53.0) % MCV 91.8 (80.0-100.0) fL MCH 31.9 (25.0-35.0) pg MCHC 34.8 (31.0-37.0) g/dL RDW 12.9 (11.5-15.5) % Plt Count 195 (150-450) k/uL MPV 8.3 Neutrophils % 63 % Lymphocytes % 26 % Monocytes % 7 % Eosinophils % 2 % Basophils % 0 % Neutrophils # 5.5 (1.3-7.7) k/uL Lymphocytes # 2.3 (1.0-4.8) k/uL Monocytes # 0.6 (0-1.0) k/uL Eosinophils # 0.2 (0-0.7) k/uL Basophils # 0.0 (0-0.2) k/uL PT 9.7 (9.0-12.0) sec INR 0.9 (<1.2) APTT 23.9 (22.0-30.0) sec Sodium 142 (137-145) mmol/L Potassium 3.6 (3.5-5.1) mmol/L Chloride 111 H (98-107) mmol/L Carbon Dioxide 22 (22-30) mmol/L Anion Gap 9 mmol/L BUN 38 H (9-20) mg/dL Creatinine 1.91 H (0.66-1.25) mg/dL Est GFR (CKD-EPI)AfAm 36 (>60 ml/min/1.73 sqM) Est GFR (CKD-EPI)NonAf 31 (>60 ml/min/1.73 sqM) Glucose 105 H (74-99) mg/dL Calcium 9.2 (8.4-10.2) mg/dL Total Bilirubin 0.4 (0.2-1.3) mg/dL AST 27 (17-59) U/L ALT 20 (4-49) U/L Alkaline Phosphatase 75 (38-126) U/L Troponin I (0.000-0.034) ng/mL Total Protein 5.9 L (6.3-8.2) g/dL Albumin 3.7 (3.5-5.0) g/dL 12/04/22 Range/Units 00:01 WBC (3.8-10.6) k/uL RBC (4.30-5.90) m/uL Hgb (13.0-17.5) gm/dL Hct (39.0-53.0) % MCV (80.0-100.0) fL MCH (25.0-35.0) pg MCHC (31.0-37.0) g/dL RDW (11.5-15.5) % Plt Count (150-450) k/uL MPV Neutrophils % % Lymphocytes % % Monocytes % % Eosinophils % % Basophils % % Neutrophils # (1.3-7.7) k/uL Lymphocytes # (1.0-4.8) k/uL Monocytes # (0-1.0) k/uL Eosinophils # (0-0.7) k/uL Basophils # (0-0.2) k/uL PT (9.0-12.0) sec INR (<1.2) APTT (22.0-30.0) sec Sodium (137-145) mmol/L Potassium (3.5-5.1) mmol/L Chloride (98-107) mmol/L Carbon Dioxide (22-30) mmol/L Anion Gap mmol/L BUN (9-20) mg/dL Creatinine (0.66-1.25) mg/dL Est GFR (CKD-EPI)AfAm (>60 ml/min/1.73 sqM) Est GFR (CKD-EPI)NonAf (>60 ml/min/1.73 sqM) Glucose (74-99) mg/dL Calcium (8.4-10.2) mg/dL Total Bilirubin (0.2-1.3) mg/dL AST (17-59) U/L ALT (4-49) U/L Alkaline Phosphatase (38-126) U/L Troponin I 0.029 (0.000-0.034) ng/mL Total Protein (6.3-8.2) g/dL Albumin (3.5-5.0) g/dL - Medical Decision Making Was pt. sent in by a medical professional or institution ([facility]ador, [employer], urgent care, hospital, or residential...) When possible be specific @ -No Did you speak to anyone other than the patient for history (EMS, parent, family, police, friend...)? What history was obtained from this source @ -Daughter provides history - their concern for stroke like symptoms Did you review nursing and triage notes (agree or disagree)? Why? @ -I reviewed and agree with nursing and triage notes Were old charts reviewed (outside hosp., previous admission, EMS record, old EKG, old radiological studies, urgent care reports/EKG's, residential records)? Report findings @ -No old charts were reviewed Differential Diagnosis (chest pain, altered mental status, abdominal pain women, abdominal pain men, vaginal bleeding, weakness, fever, dyspnea, syncope, headache, dizziness, GI bleed, back pain, seizure, CVA, palpatations, mental health, musculoskeletal)? @ -CVA, TIA, peripheral neuropathy, carpal tunnel EKG interpreted by me (3pts min.). @ -Yes - intermittent paced rhythm X-rays interpreted by me (1pt min.). @ -yes - no intrathoracic process CT interpreted by me (1pt min.). @ -yes - no acute ischemia U/S interpreted by me (1pt. min.). @ -None done What testing was considered but not performed or refused? (CT, X-rays, U/S, labs)? Why? @ -None What meds were considered but not given or refused? Why? @ -None Did you discuss the management of the patient with other professionals (professionals i.e. ARMIN Amador, [employer], lab, RT, psych nurse, social service manager, special events manager, teacher, supply officer, case management assistant)? Give summary @ -No Was smoking cessation discussed for >3mins.? @ -No Was critical care preformed (if so, how long)? @ -No Were there social determinants of health that impacted care today? How? (Homelessness, low income, unemployed, alcoholism, drug addiction, transportation, low edu. Level, literacy, decrease access to med. care, fdc, rehab)? @ -No Was there de-escalation of care discussed even if they declined (Discuss DNR or withdrawal of care, Hospice)? DNR status @ -No What co-morbidities impacted this encounter? (DM, HTN, Smoking, COPD, CAD, Cancer, CVA, ARF, Chemo, Hep., AIDS, mental health diagnosis, sleep apnea, morbid obesity)? @ -None Was patient admitted / discharged? Hospital course, mention meds given and route, prescriptions, significant lab abnormalities, going to OR and other pertinent info. @ -Upon arrival patient was placed into room 3. History and physical exam was performed. Patient does have subjective paresthesias of his bilateral hands. Positive Tinel sign on the right. Patient's concern is for stroke. Due to his facial numbness and hand numbness he is sent for a CT of his head which demonstrates no acute process intracranially. Does demonstrate some mild to moderate degenerative disc disease. Chest x-ray demonstrates no acute cardiopulmonary process. Results are discussed with the patient's. Patient feels comfortable being discharged at this time and needs to follow-up with primary care doctor in regards to his symptoms. Also recommend that the patient see the orthopedic associates. Instructed to return should he have any new or worsening symptoms. Patient agreeable to this plan he is discharged home in stable condition Undiagnosed new problem with uncertain prognosis? @ -yes Drug Therapy requiring intensive monitoring for toxicity (Heparin, Nitro, Insulin, Cardizem)? @ -No Were any procedures done? @ -No Diagnosis/symptom? @ -acute bilateral hand paresthesias Acute, or Chronic, or Acute on Chronic? @ -acute Uncomplicated (without systemic symptoms) or Complicated (systemic symptoms)? @ -complicated Side effects of treatment? @ -No Exacerbation, Progression, or Severe Exacerbation? @ -No Poses a threat to life or bodily function? How? (Chest pain, [place], [place], pneumonia, PE, COPD, DKA, ARF, appy, cholecystitis, CVA, Diverticulitis, Homicidal, Suicidal, threat to staff... and all critical care pts) @ -No EKG demonstrates sinus rhythm with intermittent pacing. Rate of 96. DE interval 2:30. QRS 141. QTC of 440. Pacemaker captures appropriately. No ST segment elevation or depression 12/04/22 01:02 Past Medical History Past Medical History: GERD/Reflux, Hypertension Additional Past Medical History / Comment(s): Gout, History of Any Multi-Drug Resistant Organisms: None Reported Past Surgical History: Appendectomy, Cholecystectomy, Tonsillectomy Additional Past Surgical History / Comment(s): Neck fusion Past Psychological History: No Psychological Hx Reported Smoking Status: Never smoker Past Alcohol Use History: None Reported Past Drug Use History: None Reported - Past Family History Father Family Medical History: Diabetes Mellitus Additional Family Medical History / Comment(s): Patient states "heart problems" Mother Additional Family Medical History / Comment(s): patient states "heart problems". Stroke Brother(s) Family Medical History: Diabetes Mellitus Course Vital Signs 12/03/22 12/04/22 12/04/22 21:40 00:21 01:37 Temperature 97.9 F Pulse Rate 56 L 71 78 Respiratory 20 20 20 Rate Blood Pressure 148/79 151/85 141/82 O2 Sat by Pulse 94 L 96 98 Oximetry Disposition Clinical Impression: Paresthesias Disposition: HOME SELF-CARE Condition: Stable Instructions (If sedation given, give patient instructions): Paresthesia (ED) Additional Instructions: Please follow-up with your primary care doctor in regards to your symptoms. May benefit from seeing orthopedic doctor. Return for any new or worsening symptoms Is patient prescribed a controlled substance at d/c from ED?: No Referrals: [facility],Clinic [Primary Care Provider] - 1-2 days Issa Jacobs DO [Doctor of Osteopathic Medicine] - 1-2 days Time of Disposition: 00:56
[2022-12-04 01:40] VITALS: BP 141/82; PULSE 78
== END 2022-12-04 01:40 | disposition home or self-care (01) ==
LOC: EC 21:38
DX: R20.2 Paresthesia of skin (principal); I10 Essential (primary) hypertension; K21.9 Gastro-esophageal reflux disease without esophagitis; Z79.82 Long term (current) use of aspirin; Z79.899 Other long term (current) drug therapy; Z88.5 Allergy status to narcotic agent; Z88.8 Allergy status to other drugs, medicaments and biological substances
CPT/HCPCS: 36415; 70450; 71046; 72125; 80053; 84484; 85025; 85610; 85730; 93005; 99284

== ENCOUNTER 2023-11-22 13:38 | Emergency (ER) | payer OTHER, MEDICARE ==
[2023-11-22 13:42] VITALS: RESP 16
--- NOTE | 2023-11-22 14:37 | ED ---
Abdominal Pain HPI - General Chief Complaint: Abdominal Pain Stated Complaint: Dizziness,Abd pain Time Seen by Provider: 11/22/23 14:00 Source: patient, family, RN notes reviewed, old records reviewed Mode of arrival: ambulatory Limitations: no limitations - History of Present Illness Initial Comments: This is an 88-year-old male who presents to the emergency department complaining of abdominal pain for the last 2 weeks. Patient states it has been intermittent but has been getting slightly worse. Patient states currently its only slight. Patient states it is on the right side and has already had a cholecystectomy. Patient denies any nausea vomiting or diarrhea. Patient has any fever or chills. Patient denies any chest pain difficult breathing shortness of breath or patient has any back pain. Patient has any dysuria hematuria urinary alpesh quency. - Related Data Home Medications Medication Instructions Recorded Confirmed Ascorbic Acid [Vitamin C] 1,000 mg PO DAILY 03/20/21 11/22/23 Atorvastatin [Lipitor] 80 mg PO HS 03/20/21 11/22/23 Cyclobenzaprine [Flexeril] 10 mg PO BID PRN 03/20/21 11/22/23 Febuxostat 40 mg PO DAILY 03/20/21 11/22/23 Gabapentin 600 mg PO BID 03/20/21 11/22/23 Multivitamins, Thera [Multivitamin 1 tab PO DAILY 03/20/21 11/22/23 (formulary)] Pantoprazole [Protonix] 40 mg PO BID 03/20/21 11/22/23 Glucosamine Sulfate 1,500 mg PO DAILY 12/15/21 11/22/23 Apixaban [Eliquis] 2.5 mg PO BID 11/22/23 11/22/23 Colchicine 0.6 - 1.2 mg PO DIRECTED PRN 11/22/23 11/22/23 Ferrous Sulfate [Feosol] 325 mg PO DAILY 11/22/23 11/22/23 Fish Oil/Dha/Epa [Fish Oil 1,200 1 cap PO BID 11/22/23 11/22/23 mg Fish Oil] Furosemide [Lasix] 20 mg PO DAILY 11/22/23 11/22/23 Gabapentin 600 mg PO DAILY PRN 11/22/23 11/22/23 Latanoprostene Bunod [Vyzulta] 1 drop BOTH EYES HS 11/22/23 11/22/23 Potassium Chloride ER [K-Dur 20] 20 meq PO DAILY 11/22/23 11/22/23 Turmeric Root Extract [Turmeric] 500 mg PO BID 11/22/23 11/22/23 Previous Rx's Medication Instructions Recorded hydrALAZINE HCL [Apresoline] 75 mg PO TID #90 tab 12/16/21 Meclizine [Antivert] 25 mg PO TID #20 tab 11/22/23 Allergies Allergy/AdvReac Type Severity Reaction Status Date / Time allopurinol Allergy Itching Verified 11/22/23 15:08 brimonidine [From Simbrinza] Allergy Rash/Hives Verified 11/22/23 15:08 brinzolamide [From Simbrinza] Allergy Rash/Hives Verified 11/22/23 15:08 tramadol [From Ultram] Allergy Rash/Hives Verified 11/22/23 15:08 amitriptyline [From Elavil] AdvReac anxiety Verified 11/22/23 15:08 lovastatin AdvReac Abdominal Verified 11/22/23 15:08 Pain trazodone AdvReac nightmares Verified 11/22/23 15:08 Review of Systems ROS Statement: Those systems with pertinent positive or pertinent negative responses have been documented in the HPI. ROS Other: All systems not noted in ROS Statement are negative. Past Medical History Past Medical History: GERD/Reflux, Hypertension Additional Past Medical History / Comment(s): Gout, History of Any Multi-Drug Resistant Organisms: None Reported Past Surgical History: Appendectomy, Cholecystectomy, Tonsillectomy Additional Past Surgical History / Comment(s): Neck fusion Past Psychological History: No Psychological Hx Reported Smoking Status: Never smoker Past Alcohol Use History: None Reported Past Drug Use History: None Reported - Past Family History Father Family Medical History: Diabetes Mellitus Additional Family Medical History / Comment(s): Patient states "heart problems" Mother Additional Family Medical History / Comment(s): patient states "heart problems". Stroke Brother(s) Family Medical History: Diabetes Mellitus General Exam - General Exam Comments Initial Comments: GENERAL: Patient is well-developed and well-nourished. Patient is nontoxic and well- hydrated and is in mild distress. ENT: Neck is soft and supple. No significant lymphadenopathy is noted. Oropharynx is clear. Moist mucous membranes. Neck has full range of motion without eliciting any pain. EYES: The sclera were anicteric and conjunctiva were pink and moist. Extraocular movements were intact and pupils were equal round and reactive to light. Eyelids were unremarkable. PULMONARY: Unlabored respirations. Good breath sounds bilaterally. No audible rales rhonchi or wheezing was noted. CARDIOVASCULAR: There is a regular rate and rhythm without any murmurs gallops or rubs. ABDOMEN: Minimal right upper quadrant abdominal pain SKIN: Skin is clear with no lesions or rashes and otherwise unremarkable. NEUROLOGIC: Patient is alert and oriented x3. Cranial nerves II through XII are grossly intact. Motor and sensory are also intact. Normal speech, volume and content. Symmetrical smile. MUSCULOSKELETAL: Normal extremities with adequate strength and full range of motion. No lower extremity swelling or edema. No calf tenderness. LYMPHATICS: No significant lymphadenopathy is noted PSYCHIATRIC: Normal psychiatric evaluation. Limitations: no limitations Course Vital Signs 11/22/23 13:39 Temperature 98.3 F Pulse Rate 79 Respiratory 16 Rate Blood Pressure 160/92 O2 Sat by Pulse 96 Oximetry Medical Decision Making - Medical Decision Making EKG is interpreted by myself. EKG shows a paced rhythm at 64 bpm ME interval 130 QRS is 156 QT interval is 446 QTc is 456. Was pt. sent in by a medical professional or institution ([facility] Amador, STRE[employer] CLEANING EQUIPMENT OPERATOR, urgent c are, hospital, or long term...) When possible be specific @ -No Did you speak to anyone other than the patient for history (EMS, parent, family, police, friend...)? What history was obtained from this source @ -Patient's daughter was with the patient and gave quite a bit of the history Did you review nursing and triage notes (agree or disagree)? Why? @ -I reviewed and agree with nursing and triage notes Were old charts reviewed (outside hosp., previous admission, EMS record, old EKG, old radiological studies, urgent care reports/EKG's, long term records)? Report findings @ -I compared today's lab work with previous lab work. I saw no significant abnormality other than the white count was mildly elevated. Differential Diagnosis (chest pain, altered mental status, abdominal pain women, abdominal pain men, vaginal bleeding, weakness, fever, dyspnea, syncope, headache, dizziness, GI bleed, back pain, seizure, CVA, palpatations, mental health, musculoskeletal)? @ -Differential Abdominal Pain Men: Appendicitis, cholecystitis, diverticulosis, ischemic bowel, pancreatitis, hepatitis, UTI, gastroenteritis, AAA, incarcerated hernia, bowel obstruction, constipation, inflammatory bowel, hepatitis, peptic ulcer disease, splenic infarction, perforated viscus, testicular torsion, this is not meant to be an all-inclusive list EKG interpreted by me (3pts min.). @ -As above X-rays interpreted by me (1pt min.). @ -None done CT interpreted by me (1pt min.). @ -CT abdomen pelvis shows no acute abnormality may be a little gastritis U/S interpreted by me (1pt. min.). @ -None done What testing was considered but not performed or refused? (CT, X-rays, U/S, labs)? Why? @ -None What meds were considered but not given or refused? Why? @ -None Did you discuss the management of the patient with other professionals (professionals i.e. , PA, STRE[employer] CLEANING EQUIPMENT OPERATOR, lab, RT, psych nurse, mental health social worker, bilingual counter sales retail, teacher, toxics program officer, field nurse case manager)? Give summary @ -No Was smoking cessation discussed for >3mins.? @ -No Was critical care preformed (if so, how long)? @ -No Were there social determinants of health that impacted care today? How? (Homelessness, low income, unemployed, alcoholism, drug addiction, transportation, low edu. Level, literacy, decrease access to med. care, prison, rehab)? @ -No Was there de-escalation of care discussed even if they declined (Discuss DNR or withdrawal of care, Hospice)? DNR status @ -No What co-morbidities impacted this encounter? (DM, HTN, Smoking, COPD, CAD, Cancer, CVA, ARF, Chemo, Hep., AIDS, mental health diagnosis, sleep apnea, morbid obesity)? @ -None Was patient admitted / discharged? Hospital course, mention meds given and route, prescriptions, significant lab abnormalities, going to OR and other pertinent info. @ -I went back to reevaluate the patient he stated that he did not have any abdominal pain but then when he laid down to do the CAT scan he felt a little bit of pain in the right upper quadrant again. Patient stated it could be mus cular. Patient states the dizziness comes and goes and seems to be a little bit worse with movement of his head. Undiagnosed new problem with uncertain prognosis? @ -No Drug Therapy requiring intensive monitoring for toxicity (Heparin, Nitro, Insulin, Cardizem)? @ -No Were any procedures done? @ -No Diagnosis/symptom? @ -Abdominal pain Acute, or Chronic, or Acute on Chronic? @ -Acute Uncomplicated (without systemic symptoms) or Complicated (systemic symptoms)? @ -Complicated Side effects of treatment? @ -No Exacerbation, Progression, or Severe Exacerbation? @ -No Poses a threat to life or bodily function? How? (Chest pain, [place], [place], pneumonia, PE, COPD, DKA, ARF, appy, cholecystitis, CVA, Diverticulitis, Homicidal, Suicidal, threat to staff... and all critical care pts) @ -No Diagnosis/symptom? @ -Vertigo Acute, or Chronic, or Acute on Chronic? @ -Acute Uncomplicated (without systemic symptoms) or Complicated (systemic symptoms)? @ -Uncomplicated Side effects of treatment? @ -None Exacerbation, Progression, or Severe Exacerbation] @ -No Poses a threat to life or bodily function? @ -No - Lab Data Result diagrams: 11/22/23 14:37 11/22/23 14:37 Lab Results 11/22/23 11/22/23 11/22/23 Range/Units 14:37 14:37 14:37 WBC 13.2 H (3.8-10.6) k/uL RBC 4.90 (4.30-5.90) m/uL Hgb 14.9 (13.0-17.5) gm/dL Hct 44.8 (39.0-53.0) % MCV 91.4 (80.0-100.0) fL MCH 30.5 (25.0-35.0) pg MCHC 33.3 (31.0-37.0) g/dL RDW 12.7 (11.5-15.5) % Plt Count 196 (150-450) k/uL MPV 8.8 Neutrophils % 67 % Lymphocytes % 21 % Monocytes % 9 % Eosinophils % 1 % Basophils % 0 % Neutrophils # 8.8 H (1.3-7.7) k/uL Lymphocytes # 2.8 (1.0-4.8) k/uL Monocytes # 1.2 H (0-1.0) k/uL Eosinophils # 0.1 (0-0.7) k/uL Basophils # 0.0 (0-0.2) k/uL Sodium 141 (137-145) mmol/L Potassium 4.1 (3.5-5.1) mmol/L Chloride 109 H (98-107) mmol/L Carbon Dioxide 22 (22-30) mmol/L Anion Gap 10 mmol/L BUN 53 H (9-20) mg/dL Creatinine 1.74 H (0.66-1.25) mg/dL Est GFR (CKD-EPI)AfAm 40 (>60 ml/min/1.73 sqM) Est GFR (CKD-EPI)NonAf 35 (>60 ml/min/1.73 sqM) Glucose 90 (74-99) mg/dL Plasma Lactic Acid Donis 1.1 (0.7-2.0) mmol/L Calcium 9.3 (8.4-10.2) mg/dL Total Bilirubin 0.7 (0.2-1.3) mg/dL AST 24 (17-59) U/L ALT 23 (4-49) U/L Alkaline Phosphatase 66 (38-126) U/L Troponin I (0.000-0.034) ng/mL Total Protein 6.2 L (6.3-8.2) g/dL Albumin 4.1 (3.5-5.0) g/dL Amylase 81 (30-110) U/L Lipase 120 (23-300) U/L Urine Color Urine Appearance (Clear) Urine pH (5.0-8.0) Ur Specific [place] (1.001-1.035) Urine Protein (Negative) Urine Glucose (UA) (Negative) Urine Ketones (Negative) Urine Blood (Negative) Urine Nitrite (Negative) Urine Bilirubin (Negative) Urine Urobilinogen (<2.0) mg/dL Ur Leukocyte Esterase (Negative) Urine RBC (0-5) /hpf Urine WBC (0-5) /hpf Urine Mucus (None) /hpf 11/22/23 11/22/23 Range/Units 14:37 14:59 WBC (3.8-10.6) k/uL RBC (4.30-5.90) m/uL Hgb (13.0-17.5) gm/dL Hct (39.0-53.0) % MCV (80.0-100.0) fL MCH (25.0-35.0) pg MCHC (31.0-37.0) g/dL RDW (11.5-15.5) % Plt Count (150-450) k/uL MPV Neutrophils % % Lymphocytes % % Monocytes % % Eosinophils % % Basophils % % Neutrophils # (1.3-7.7) k/uL Lymphocytes # (1.0-4.8) k/uL Monocytes # (0-1.0) k/uL Eosinophils # (0-0.7) k/uL Basophils # (0-0.2) k/uL Sodium (137-145) mmol/L Potassium (3.5-5.1) mmol/L Chloride (98-107) mmol/L Carbon Dioxide (22-30) mmol/L Anion Gap mmol/L BUN (9-20) mg/dL Creatinine (0.66-1.25) mg/dL Est GFR (CKD-EPI)AfAm (>60 ml/min/1.73 sqM) Est GFR (CKD-EPI)NonAf (>60 ml/min/1.73 sqM) Glucose (74-99) mg/dL Plasma Lactic Acid Donis (0.7-2.0) mmol/L Calcium (8.4-10.2) mg/dL Total Bilirubin (0.2-1.3) mg/dL AST (17-59) U/L ALT (4-49) U/L Alkaline Phosphatase (38-126) U/L Troponin I 0.016 (0.000-0.034) ng/mL Total Protein (6.3-8.2) g/dL Albumin (3.5-5.0) g/dL Amylase (30-110) U/L Lipase (23-300) U/L Urine Color Colorless Urine Appearance Clear (Clear) Urine pH 5.0 (5.0-8.0) Ur Specific [place] 1.008 (1.001-1.035) Urine Protein 1+ H (Negative) Urine Glucose (UA) Negative (Negative) Urine Ketones Negative (Negative) Urine Blood Negative (Negative) Urine Nitrite Negative (Negative) Urine Bilirubin Negative (Negative) Urine Urobilinogen <2.0 (<2.0) mg/dL Ur Leukocyte Esterase Negative (Negative) Urine RBC <1 (0-5) /hpf Urine WBC 1 (0-5) /hpf Urine Mucus Rare H (None) /hpf Disposition Clinical Impression: Abdominal pain, Vertigo Disposition: HOME SELF-CARE Instructions (If sedation given, give patient instructions): Vertigo (ED), Abdominal Pain (ED) Additional Instructions: Patient should return to the emergency department if symptoms worsen or there are any new symptoms. Prescriptions: Meclizine [Antivert] 25 mg PO TID #20 tab Is patient prescribed a controlled substance at d/c from ED?: No Referrals: [facility],Clinic [Primary Care Provider] - 1-2 days Time of Disposition: 16:25
[2023-11-22] MEDS: SODIUM CHLORIDE 0.9% 1,000 ML IV STA (14:40)
[2023-11-22 14:43] LABS: Basophils % (A) 0 %; Eosinophils # (A) 0.1 k/uL (0-0.7); Eosinophils % (A) 1 %; HCT 44.8 % (39.0-53.0); HGB 14.9 gm/dL (13.0-17.5); Lymphocytes # (A) 2.8 k/uL (1.0-4.8); Lymphocytes % (A) 21 %; MCH 30.5 pg (25.0-35.0); MCHC 33.3 g/dL (31.0-37.0); MCV 91.4 fL (80.0-100.0); Mean Platelet Volume 8.8; Monocytes # (A) 1.2 k/uL (0-1.0); Monocytes % (A) 9 %; Neutrophils # (A) 8.8 k/uL (1.3-7.7); Neutrophils % (A) 67 %; Platelet Count 196 k/uL (150-450); RDW 12.7 % (11.5-15.5); WBC 13.2 k/uL (3.8-10.6)
[2023-11-22 14:55] LABS: ALT 23 U/L (4-49); AST 24 U/L (17-59); African American GFR (CKD) 40 (>60 ml/min/1.73 sqM); Albumin 4.1 g/dL (3.5-5.0); Alkaline Phosphatase 66 U/L (38-126); Amylase 81 U/L (30-110); Anion Gap 10 mmol/L; Blood Urea Nitrogen 53 mg/dL (9-20); Calcium 9.3 mg/dL (8.4-10.2); Carbon Dioxide 22 mmol/L (22-30); Chloride 109 mmol/L (98-107); Glucose 90 mg/dL (74-99); Lipase 120 U/L (23-300); Non-African American GFR(CKD) 35 (>60 ml/min/1.73 sqM); Potassium 4.1 mmol/L (3.5-5.1); Sodium 141 mmol/L (137-145); Total Bilirubin 0.7 mg/dL (0.2-1.3); Total Protein 6.2 g/dL (6.3-8.2)
[2023-11-22 15:16] LABS: Appearance,Urine Clear (Clear); Bilirubin,Urine Negative (Negative); Blood,Urine Negative (Negative); Color,Urine Colorless; Glucose,Urine (UA) Negative (Negative); Ketones,Urine Negative (Negative); Leukocyte Esterase,Urine Negative (Negative); Mucus,Urine Rare /hpf; Nitrite,Urine Negative (Negative); Protein,Urine 1+ (Negative); RBC,Urine <1 /hpf (0-5); Specific Gravity,Urine 1.008 (1.001-1.035); Urobilinogen,Urine <2.0 mg/dL (<2.0); WBC,Urine 1 /hpf (0-5)
--- NOTE | 2023-11-22 16:10 | CT ---
EXAMINATION TYPE: CT abdomen pelvis wo con CT DLP: 855.5 mGycm, Automated exposure control for dose reduction was used. DATE OF EXAM: 11/22/2023 3:55 PM COMPARISON: CT abdomen pelvis most recent from CLINICAL INDICATION:Male, 88 years old with history of Abdominal pain; abdominal pain TECHNIQUE: Axial CT abdomen pelvis wo con;Sagittal and coronal reformats were created on a separate workstation. Contrast used: mL of , (none if empty) Oral contrast used: without Oral Contrast (none if empty) FINDINGS: LOWER CHEST: The heart is mildly enlarged for size. Moderate coronary artery atherosclerosis. Basilar streaky atelectasis. ABDOMEN LIVER: Unremarkable GALLBLADDER AND BILE DUCTS: Gallbladder is surgically absent with mild intrahepatic and extra hepatic biliary dilatation likely physiologic and a postcholecystectomy change. No evidence of choledocholit hiasis. PANCREAS: Unremarkable. SPLEEN: Unremarkable. ADRENAL GLANDS: Unremarkable. KIDNEYS AND URETERS: r obstructing 7 mm left renal calculus. No right renal colic 5. PELVIS BLADDER: Bladder diverticula off the right posterior aspect of the bladder. REPRODUCTIVE: Small bilateral hydroceles. ABDOMEN & PELVIS STOMACH AND BOWEL: No evidence of bowel obstruction. Gastric lumen is nondistended with thickening of the greater curvature up to 26 mm. PERITONEUM/RETROPERITONEUM: No evidence of pneumoperitoneum or fr ee fluid. VASCULATURE: Severe atherosclerotic calcifications are present throughout the abdominal aorta and its branches. No evidence of aortic aneurysm. MUSCULOSKELETAL: No acute osseous abnormalities. Moderate disc degeneration changes are present throu ghout the thoracolumbar spine. LYMPH NODES: No gross evidence for lymphadenopathy. SOFT TISSUE/ABDOMINAL WALL: Bilateral fat-containing inguinal hernias left greater than right. IMPRESSION: 1. Mild gastric wall thickening which may be due to underdistention. Correlate for upper abdominal p ain the setting of gastritis. 2. Mild prominence of the vasculature to the sigmoid colon where multiple diverticula. Correlate for left lower quadrant quadrant pain in the setting of mild diverticulitis. 3. No obstructing left renal calculus. 4. Right posterior bladder diverticula. 5. Colonic diverticulosis.
[2023-11-22 18:05] VITALS: BP 155/88; PULSE 82; TEMP 98
== END 2023-11-22 17:29 | disposition home or self-care (01) ==
LOC: EC 13:38
DX: K57.30 Diverticulosis of large intestine without perforation or abscess without bleeding (principal); N32.3 Diverticulum of bladder; R42 Dizziness and giddiness; Z88.5 Allergy status to narcotic agent; Z88.8 Allergy status to other drugs, medicaments and biological substances; Z90.49 Acquired absence of other specified parts of digestive tract
CPT/HCPCS: 36415; 74176; 80053; 81001; 82150; 83605; 83690; 84484; 85025; 96360; 96361; 99284

== ENCOUNTER 2023-12-05 00:08 | Emergency (ER) | payer OTHER, MEDICARE ==
--- NOTE | 2023-12-05 01:01 | ED ---
Extremity Problem HPI - General Chief complaint: Extremity Problem,Nontraumatic Stated complaint: left elbow pain Time Seen by Provider: 12/05/23 00:37 Source: patient Mode of arrival: ambulatory Limitations: no limitations - History of Present Illness Initial comments: 88-year-old male presenting with chief complaint of elbow pain. Patient is experiencing left elbow pain. Started earlier today and worsened throughout the day. No redness or swelling. No injury or trauma. No fevers or chills. No abrasions or wounds over the area. - Related Data Home Medications Medication Instructions Recorded Confirmed Ascorbic Acid [Vitamin C] 1,000 mg PO DAILY 03/20/21 11/22/23 Atorvastatin [Lipitor] 80 mg PO HS 03/20/21 11/22/23 Cyclobenzaprine [Flexeril] 10 mg PO BID PRN 03/20/21 11/22/23 Febuxostat 40 mg PO DAILY 03/20/21 11/22/23 Gabapentin 600 mg PO BID 03/20/21 11/22/23 Multivitamins, Thera [Multivitamin 1 tab PO DAILY 03/20/21 11/22/23 (formulary)] Pantoprazole [Protonix] 40 mg PO BID 03/20/21 11/22/23 Glucosamine Sulfate 1,500 mg PO DAILY 12/15/21 11/22/23 Apixaban [Eliquis] 2.5 mg PO BID 11/22/23 11/22/23 Colchicine 0.6 - 1.2 mg PO DIRECTED PRN 11/22/23 11/22/23 Ferrous Sulfate [Feosol] 325 mg PO DAILY 11/22/23 11/22/23 Fish Oil/Dha/Epa [Fish Oil 1,200 1 cap PO BID 11/22/23 11/22/23 mg Fish Oil] Furosemide [Lasix] 20 mg PO DAILY 11/22/23 11/22/23 Gabapentin 600 mg PO DAILY PRN 11/22/23 11/22/23 Latanoprostene Bunod [Vyzulta] 1 drop BOTH EYES HS 11/22/23 11/22/23 Potassium Chloride ER [K-Dur 20] 20 meq PO DAILY 11/22/23 11/22/23 Turmeric Root Extract [Turmeric] 500 mg PO BID 11/22/23 11/22/23 Previous Rx's Medication Instructions Recorded hydrALAZINE HCL [Apresoline] 75 mg PO TID #90 tab 12/16/21 Meclizine [Antivert] 25 mg PO TID #20 tab 11/22/23 Allergies Allergy/AdvReac Type Severity Reaction Status Date / Time allopurinol Allergy Itching Verified 12/05/23 00:36 brimonidine [From Simbrinza] Allergy Rash/Hives Verified 12/05/23 00:36 brinzolamide [From Simbrinza] Allergy Rash/Hives Verified 12/05/23 00:36 tramadol [From Ultram] Allergy Rash/Hives Verified 12/05/23 00:36 amitriptyline [From Elavil] AdvReac anxiety Verified 12/05/23 00:36 lovastatin AdvReac Abdominal Verified 12/05/23 00:36 Pain trazodone AdvReac nightmares Verified 12/05/23 00:36 Review of Systems ROS Statement: Those systems with pertinent positive or pertinent negative responses have been documented in the HPI. ROS Other: All systems not noted in ROS Statement are negative. Past Medical History Past Medical History: GERD/Reflux, Hypertension Additional Past Medical History / Comment(s): Gout, History of Any Multi-Drug Resistant Organisms: None Reported Past Surgical History: Appendectomy, Cholecystectomy, Tonsillectomy Additional Past Surgical History / Comment(s): Neck fusion Past Psychological History: No Psychological Hx Reported Smoking Status: Never smoker Past Alcohol Use History: None Reported Past Drug Use History: None Reported - Past Family History Father Family Medical History: Diabetes Mellitus Additional Family Medical History / Comment(s): Patient states "heart problems" Mother Additional Family Medical History / Comment(s): patient states "heart problems". Stroke Brother(s) Family Medical History: Diabetes Mellitus General Exam Limitations: no limitations General appearance: alert, in no apparent distress Head exam: Present: atraumatic, normocephalic Eye exam: Present: normal appearance Neck exam: Present: normal inspection Respiratory exam: Absent: respiratory distress Cardiovascular Exam: Present: regular rate Left Elbow exam: Present: normal inspection, full ROM, tenderness (Tenderness over the lateral epicondyle.). Absent: swelling, abrasion, ecchymosis, deformity, erythema Neurological exam: Present: alert, oriented X3 Psychiatric exam: Present: normal affect, normal mood Skin exam: Present: warm, dry, normal color Course Vital Signs 12/05/23 00:32 Temperature 98.4 F Pulse Rate 71 Respiratory 22 Rate Blood Pressure 145/73 O2 Sat by Pulse 94 L Oximetry Medical Decision Making - Medical Decision Making Was pt. sent in by a medical professional or institution (ARMIN Amador, GAS DESULFURIZER, urgent care, hospital, or long term...) When possible be specific @ -no Did you speak to anyone other than the patient for history (EMS, parent, family, police, friend...)? What history was obtained from this source @ -No Did you review nursing and triage notes (agree or disagree)? Why? @ -I reviewed and agree with nursing and triage notes Were old charts reviewed (outside hosp., previous admission, EMS record, old EKG, old radiological studies, urgent care reports/EKG's, long term records)? Report findings @ -No old charts were reviewed Differential Diagnosis (chest pain, altered mental status, abdominal pain women, abdominal pain men, vaginal bleeding, weakness, fever, dyspnea, syncope, headache, dizziness, GI bleed, back pain, seizure, CVA, palpatations, mental health, musculoskeletal)? @ -Differential Musculoskeletal Muscular strain, contusion, ligament sprain, fracture, arthritis, septic arthritis, bursitis, cellulitis, muscle spasm, nerve compression, DVT, arterial occlusion, herpes zoster, electrolyte abnormality, tumor.... This is not meant to be in all inclusive list EKG interpreted by me (3pts min.). @ -As above X-rays interpreted by me (1pt min.). @ -X-ray shows no acute fracture or dislocation. No abnormal fat pad sign. Small bony projection from the olecranon and distal triceps tendon insertion. The overlying soft tissue appears unremarkable. CT interpreted by me (1pt min.). @ -None done U/S interpreted by me (1pt. min.). @ -None done What testing was considered but not performed or refused? (CT, X-rays, U/S, labs)? Why? @ -None What meds were considered but not given or refused? Why? @ -None Did you discuss the management of the patient with other professionals (professionals i.e. ARMIN Amador, GAS DESULFURIZER, lab, RT, psych nurse, social service technician, mainframe systems programmer, teacher, financial compliance officer, case repairer)? Give summary @ -No Was smoking cessation discussed for >3mins.? @ -No Was critical care preformed (if so, how long)? @ -No Were there social determinants of health that impacted care today? How? (Homelessness, low income, unemployed, alcoholism, drug addiction, transportation, low edu. Level, literacy, decrease access to med. care, usp, rehab)? @ -No Was there de-escalation of care discussed even if they declined (Discuss DNR or withdrawal of care, Hospice)? DNR status @ -No What co-morbidities impacted this encounter? (DM, HTN, Smoking, COPD, CAD, Cancer, CVA, ARF, Chemo, Hep., AIDS, mental health diagnosis, sleep apnea, morbid obesity)? @ -None Was patient admitted / discharged? Hospital course, mention meds given and route, prescriptions, significant lab abnormalities, going to OR and other pertinent info. @ -Discharge. 88-year-old male presenting chief complaint of elbow pain no injury or trauma. X-ray shows no fracture or dislocation. Presentation consistent with tendinitis. Patient educated on today's findings and supportive management at home. Discharged home. Follow-up with PCP. Report back to ER with any new or worsening symptoms. Discussed return parameters and answered all questions. Patient conveyed verbal understanding and agreed to the plan. I discussed this case in detail with my attending Dr. Osuna Undiagnosed new problem with uncertain prognosis? @ -No Drug Therapy requiring intensive monitoring for toxicity (Heparin, Nitro, Insulin, Cardizem)? @ -No Were any procedures done? @ -No Diagnosis/symptom? @ -Tendinitis Acute, or Chronic, or Acute on Chronic? @ -Acute Uncomplicated (without systemic symptoms) or Complicated (systemic symptoms)? @ -Uncomplicated Side effects of treatment? @ -No Exacerbation, Progression, or Severe Exacerbation? @ -No Poses a threat to life or bodily function? How? (Chest pain, [place], [place], pneumonia, PE, COPD, DKA, ARF, appy, cholecystitis, CVA, Diverticulitis, Homicidal, Suicidal, threat to staff... and all critical care pts) @ -No Disposition Clinical Impression: Tendonitis Disposition: HOME SELF-CARE Condition: Good Instructions (If sedation given, give patient instructions): Tendinitis (ED) Additional Instructions: Follow-up with your PCP. Report back to ER with any new or worsening symptoms. Is patient prescribed a controlled substance at d/c from ED?: No Referrals: [facility],Clinic [Primary Care Provider] - 1-2 days Time of Disposition: 01:25
[2023-12-05] MEDS: Acetaminophen-Codeine 300-30mg TAB PO STA (01:04)
--- NOTE | 2023-12-05 01:08 | XR ---
EXAMINATION TYPE: XR elbow complete LT DATE OF EXAM: 12/05/2023 CLINICAL HISTORY: Pain TECHNIQUE: Frontal, lateral and oblique images of the left elbow are obtained. COMPARISON: None FINDINGS: There is no acute fracture/dislocation evident in the left elbow. No abnormal fat pad sig ns are seen. Small bony projection or enthesopathy from the olecranon and distal triceps tendon inse rtion. The overlying soft tissue appears unremarkable. IMPRESSION: As above. No acute findings are evident.
[2023-12-05 01:11] VITALS: TEMP 98.4
[2023-12-05 02:10] VITALS: BP 149/65; PULSE 61; RESP 16
== END 2023-12-05 01:32 | disposition home or self-care (01) ==
LOC: EC 00:08
DX: M77.9 Enthesopathy, unspecified (principal); Z88.8 Allergy status to other drugs, medicaments and biological substances
CPT/HCPCS: 99283

== ENCOUNTER 2024-06-08 23:42 | Emergency (ER) | payer OTHER, MEDICARE ==
[2024-06-08 23:50] VITALS: RESP 18; TEMP 97.5
--- NOTE | 2024-06-09 00:18 | ED ---
General Adult HPI - General Chief complaint: Recheck/Abnormal Lab/Rx Stated complaint: High BP Time Seen by Provider: 06/09/24 00:05 Source: patient Mode of arrival: ambulatory Limitations: physical limitation - History of Present Illness Initial comments: Paras is a pleasant 89-year-old gentleman who presents to the emergency department today for evaluation of a mild headache patient reports that his blood pressure has been elevated all day. He has taken his usual dose of 75 mg of hydralazine 3 times today with minimal improvement in his blood pressure. Patient states he just feels slightly lightheaded when he is up and walking a little bit may be dizzy has a little bit of a headache which is atypical for him. No chest pain no palpitations no shortness of breath. No abdominal pain no nausea or vomiting. - Related Data Home Medications Medication Instructions Recorded Confirmed Ascorbic Acid [Vitamin C] 1,000 mg PO DAILY 03/20/21 11/22/23 Atorvastatin [Lipitor] 80 mg PO HS 03/20/21 11/22/23 Cyclobenzaprine [Flexeril] 10 mg PO BID PRN 03/20/21 11/22/23 Febuxostat 40 mg PO DAILY 03/20/21 11/22/23 Gabapentin 600 mg PO BID 03/20/21 11/22/23 Multivitamins, Thera [Multivitamin 1 tab PO DAILY 03/20/21 11/22/23 (formulary)] Pantoprazole [Protonix] 40 mg PO BID 03/20/21 11/22/23 Glucosamine Sulfate 1,500 mg PO DAILY 12/15/21 11/22/23 Apixaban [Eliquis] 2.5 mg PO BID 11/22/23 11/22/23 Colchicine 0.6 - 1.2 mg PO DIRECTED PRN 11/22/23 11/22/23 Ferrous Sulfate [Feosol] 325 mg PO DAILY 11/22/23 11/22/23 Fish Oil/Dha/Epa [Fish Oil 1,200 1 cap PO BID 11/22/23 11/22/23 mg Fish Oil] Furosemide [Lasix] 20 mg PO DAILY 11/22/23 11/22/23 Gabapentin 600 mg PO DAILY PRN 11/22/23 11/22/23 Latanoprostene Bunod [Vyzulta] 1 drop BOTH EYES HS 11/22/23 11/22/23 Potassium Chloride ER [K-Dur 20] 20 meq PO DAILY 11/22/23 11/22/23 Turmeric Root Extract [Turmeric] 500 mg PO BID 11/22/23 11/22/23 Previous Rx's Medication Instructions Recorded hydrALAZINE HCL [Apresoline] 75 mg PO TID #90 tab 12/16/21 Meclizine [Antivert] 25 mg PO TID #20 tab 11/22/23 Allergies Allergy/AdvReac Type Severity Reaction Status Date / Time allopurinol Allergy Itching Verified 06/08/24 23:50 brimonidine [From Simbrinza] Allergy Rash/Hives Verified 06/08/24 23:50 brinzolamide [From Simbrinza] Allergy Rash/Hives Verified 06/08/24 23:50 tramadol [From Ultram] Allergy Rash/Hives Verified 06/08/24 23:50 amitriptyline [From Elavil] AdvReac anxiety Verified 06/08/24 23:50 lovastatin AdvReac Abdominal Verified 06/08/24 23:50 Pain trazodone AdvReac nightmares Verified 06/08/24 23:50 Review of Systems ROS Statement: Those systems with pertinent positive or pertinent negative responses have been documented in the HPI. ROS Other: All systems not noted in ROS Statement are negative. Past Medical History Past Medical History: GERD/Reflux, Hypertension Additional Past Medical History / Comment(s): Gout, History of Any Multi-Drug Resistant Organisms: None Reported Past Surgical History: Appendectomy, Cholecystectomy, Tonsillectomy Additional Past Surgical History / Comment(s): Neck fusion Past Psychological History: No Psychological Hx Reported Smoking Status: Never smoker Past Alcohol Use History: None Reported Past Drug Use History: None Reported - Past Family History Father Family Medical History: Diabetes Mellitus Additional Family Medical History / Comment(s): Patient states "heart problems" Mother Additional Family Medical History / Comment(s): patient states "heart problems". Stroke Brother(s) Family Medical History: Diabetes Mellitus General Exam - General Exam Comments Initial Comments: Physical Exam GENERAL: Patient is well-developed and well-nourished. Patient is nontoxic and well-hydrated and is in no distress. HENT: Normocephalic, Atraumatic. EYES: PERRL, EOMI PULMONARY: Unlabored respirations. No audible rales rhonchi or wheezing was noted. CARDIOVASCULAR: There is a regular rate and rhythm without any murmurs gallops or rubs. ABDOMEN: Soft and nontender with normal bowel sounds. SKIN: Skin is clear with no lesions or rashes and otherwise unremarkable. : Deferred NEUROLOGIC: Patient is alert and oriented x3. Moving all extremities spontaneously Droop of the left lower eyelid however this is chronic for the patient per his at bedside MUSCULOSKELETAL: Normal extremities with adequate strength and full range of motion. No lower extremity swelling or edema. No calf tenderness. PSYCHIATRIC: Normal psychiatric evaluation. Limitations: physical limitation Course Vital Signs 06/08/24 06/09/24 06/09/24 23:47 02:00 04:00 Temperature 97.5 F L Pulse Rate 81 67 69 Respiratory 18 18 18 Rate Blood Pressure 207/101 170/88 177/92 O2 Sat by Pulse 96 96 95 Oximetry EKG Findings - EKG Comments: EKG Findings:: EKG interpreted by me EKG obtained due to hypertension EKG obtained at 12:02 AM rate is 77 rhythm is ventricular paced no ischemic findings. Medical Decision Making - Medical Decision Making Was pt. sent in by a medical professional or institution (, PA, CHUCK TENDER, urgent care, hospital, or [facility]...) When possible be specific @ -No Did you speak to anyone other than the patient for history (EMS, parent, family, police, friend...)? What history was obtained from this source @ -No Did you review nursing and triage notes (agree or disagree)? Why? @ -I reviewed and agree with nursing and triage notes Were old charts reviewed (outside hosp., previous admission, EMS record, old EKG, old radiological studies, urgent care reports/EKG's, [facility] records)? Report findings @ -No old charts were reviewed Differential Diagnosis (chest pain, altered mental status, abdominal pain women, abdominal pain men, vaginal bleeding, weakness, fever, dyspnea, syncope, headache, dizziness, GI bleed, back pain, seizure, CVA, palpatations, mental health)? @ -Not applicable EKG interpreted by me (3pts min.). @ -As above X-rays interpreted by me (1pt min.). @ -None done CT interpreted by me (1pt min.). @ -No mass or bleed U/S interpreted by me (1pt. min.). @ -None done What testing was considered but not performed or refused? (CT, X-rays, U/S, labs)? Why? @ -None What meds were considered but not given or refused? Why? @ -Clonidine was considered but contraindicated due to previous allergy Did you discuss the management of the patient with other professionals (tessie serrato i.e. , PA, CHUCK TENDER, lab, RT, psych nurse, social media analyst, video game developer, teacher, records officer, manager case management)? Give summary @ -No Was smoking cessation discussed for >3mins.? @ -No Was critical care preformed (if so, how long)? @ -No Were there social determinants of health that impacted care today? How? (Homelessness, low income, unemployed, alcoholism, drug addiction, transportation, low edu. Level, literacy, decrease access to med. care, detention, rehab)? @ -No Was there de-escalation of care discussed even if they declined (Discuss DNR or withdrawal of care, Hospice)? DNR status @ -No What co-morbidities impacted this encounter? (DM, HTN, Smoking, COPD, CAD, Cancer, CVA, ARF, Chemo, Hep., AIDS, mental health diagnosis, sleep apnea, morbid obesity)? @ -None Was patient admitted / discharged? Hospital course, mention meds given and route, prescriptions, significant lab abnormalities, going to OR and other pertinent info. @ -Discharged Seen and evaluated patient presented with critical hypertension labs were obtained and are at baseline there is no acute findings. Head CT was unr emarkable. Patient was treated with home dose of hydralazine followed by IV enalapril and metoprolol. Blood pressure improved slightly by about 15% in the systolic, patient reported feeling well. At this time and it 1 to drop the patient's blood pressure anymore and patient was comfortable plan for discharge home continued outpatient management and close return parameters. Undiagnosed new problem with uncertain prognosis? @ -No Drug Therapy requiring intensive monitoring for toxicity (Heparin, Nitro, Insulin, Cardizem)? @ -No Were any procedures done? @ -No Diagnosis/symptom? @ -Essential hypertension Acute, or Chronic, or Acute on Chronic? @ -Chronic Uncomplicated (without systemic symptoms) or Complicated (systemic symptoms)? @ -Default Side effects of treatment? @ -No Exacerbation, Progression, or Severe Exacerbation? @ -No Poses a threat to life or bodily function? How? (Chest pain, [place], [place], pneumonia, PE, COPD, DKA, ARF, appy, cholecystitis, CVA, Diverticulitis, Homicidal, Suicidal, threat to staff... and all critical care pts) @ -No - Lab Data Result diagrams: 06/09/24 00:18 06/09/24 00:18 Lab Results 06/09/24 06/09/24 06/09/24 Range/Units 00:18 00:18 00:18 WBC 8.8 (3.8-10.6) k/uL RBC 4.34 (4.30-5.90) m/uL Hgb 13.2 (13.0-17.5) gm/dL Hct 39.1 (39.0-53.0) % MCV 90.1 (80.0-100.0) fL MCH 30.5 (25.0-35.0) pg MCHC 33.8 (31.0-37.0) g/dL RDW 13.8 (11.5-15.5) % Plt Count 156 (150-450) k/uL MPV 9.0 Neutrophils % 58 % Lymphocytes % 30 % Monocytes % 8 % Eosinophils % 2 % Basophils % 0 % Neutrophils # 5.1 (1.3-7.7) k/uL Lymphocytes # 2.6 (1.0-4.8) k/uL Monocytes # 0.7 (0-1.0) k/uL Eosinophils # 0.2 (0-0.7) k/uL Basophils # 0.0 (0-0.2) k/uL Sodium 141 (137-145) mmol/L Potassium 4.4 (3.5-5.1) mmol/L Chloride 114 H (98-107) mmol/L Carbon Dioxide 20 L (22-30) mmol/L Anion Gap 7 mmol/L BUN 32 H (9-20) mg/dL Creatinine 1.52 H (0.66-1.25) mg/dL Est GFR (CKD-EPI)AfAm 47 (>60 ml/min/1.73 sqM) Est GFR (CKD-EPI)NonAf 41 (>60 ml/min/1.73 sqM) Glucose 98 (74-99) mg/dL Calcium 9.1 (8.4-10.2) mg/dL Total Bilirubin 0.7 (0.2-1.3) mg/dL AST 35 (17-59) U/L ALT 25 (4-49) U/L Alkaline Phosphatase 75 (38-126) U/L Troponin I 0.024 (0.000-0.034) ng/mL Total Protein 5.9 L (6.3-8.2) g/dL Albumin 3.8 (3.5-5.0) g/dL Disposition Clinical Impression: HTN (hypertension) Disposition: HOME SELF-CARE Condition: Stable Is patient prescribed a controlled substance at d/c from ED?: No Referrals: [facility],Clinic [Primary Care Provider] - 1-2 days
[2024-06-09] MEDS: hydrALAZINE HCL 20 MG/ML 1 ML VIAL IVP STA (00:33)
--- NOTE | 2024-06-09 00:36 | CT ---
EXAMINATION TYPE: CT brain wo con DATE OF EXAM: 06/09/2024 HISTORY: pt c/o elevated blood pressure today +headache +dizziness with fast position changes CT DLP: 1227.2 mGycm. Automated Exposure Control for Dose Reduction was Utilized. TECHNIQUE: CT scan of the head is performed without contrast. COMPARISON: Prior CT December 03, 2022. FINDINGS: There is no acute intracranial hemorrhage or midline shift identified. There is mild to m oderate diffuse ventricular and sulcal prominence redemonstrated. There is mild/moderate low-attenua tion in the periventricular white matter redemonstrated. 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 Mild mucosal t hickening in the bilateral maxillary sinuses inferiorly is present. Basal ganglia calcifications are again seen. IMPRESSION: No acute intracranial hemorrhage or midline shift. There is mild to moderate diffuse ag e-related cerebral atrophy and chronic small vessel ischemic change redemonstrated. No significant c hange from most recent prior CT. [facility], , 06/09/2024 12:34 AM
[2024-06-09 01:19] LABS: Basophils % (A) 0 %; Eosinophils # (A) 0.2 k/uL (0-0.7); Eosinophils % (A) 2 %; HCT 39.1 % (39.0-53.0); HGB 13.2 gm/dL (13.0-17.5); Lymphocytes # (A) 2.6 k/uL (1.0-4.8); Lymphocytes % (A) 30 %; MCH 30.5 pg (25.0-35.0); MCHC 33.8 g/dL (31.0-37.0); MCV 90.1 fL (80.0-100.0); Monocytes # (A) 0.7 k/uL (0-1.0); Monocytes % (A) 8 %; Neutrophils # (A) 5.1 k/uL (1.3-7.7); Neutrophils % (A) 58 %; Platelet Count 156 k/uL (150-450); RBC 4.34 m/uL (4.30-5.90); RDW 13.8 % (11.5-15.5); WBC 8.8 k/uL (3.8-10.6)
[2024-06-09 01:22] LABS: ALT 25 U/L (4-49); AST 35 U/L (17-59); African American GFR (CKD) 47 (>60 ml/min/1.73 sqM); Albumin 3.8 g/dL (3.5-5.0); Alkaline Phosphatase 75 U/L (38-126); Anion Gap 7 mmol/L; Blood Urea Nitrogen 32 mg/dL (9-20); Calcium 9.1 mg/dL (8.4-10.2); Carbon Dioxide 20 mmol/L (22-30); Chloride 114 mmol/L (98-107); Glucose 98 mg/dL (74-99); Non-African American GFR(CKD) 41 (>60 ml/min/1.73 sqM); Sodium 141 mmol/L (137-145); Total Bilirubin 0.7 mg/dL (0.2-1.3); Total Protein 5.9 g/dL (6.3-8.2)
[2024-06-09 01:36] LABS: Potassium 4.4 mmol/L (3.5-5.1)
[2024-06-09] MEDS: ENALAPRILAT 1.25 MG/ML 1 ML VIAL IVP STA (02:12)
[2024-06-09] MEDS: METOPROLOL TARTRATE 5 MG/5 ML VIAL IVP STA (04:18)
[2024-06-09 04:59] VITALS: BP 173/97; PULSE 60
== END 2024-06-09 04:59 | disposition home or self-care (01) ==
LOC: EC 23:42
DX: I10 Essential (primary) hypertension (principal); Z88.5 Allergy status to narcotic agent; Z88.8 Allergy status to other drugs, medicaments and biological substances; Z79.899 Other long term (current) drug therapy
CPT/HCPCS: 36415; 70450; 80053; 84484; 85025; 96374; 96375; 99284